=== PATIENT | male | born 1930 | race Caucasian/White ===

== ENCOUNTER 2019-06-08 13:26 | Emergency (ER) | payer OTHER ==
[~2019-06-08] VITALS: Ht 180.3 cm; Wt 81.7 kg
[2019-06-08] MEDS ORDERED: ELIQUIS5 MG PO (13:44)
== END 2019-06-08 15:33 | disposition home or self-care (01) ==
LOC: ED 13:26
DX: R20.2 Paresthesia of skin (principal); Z79.899 Other long term (current) drug therapy
CPT/HCPCS: 70450; 99284-25

== ENCOUNTER 2019-11-16 10:29 | Emergency (ER) | payer OTHER ==
[~2019-11-16] VITALS: Ht 177.8 cm; Wt 79.4 kg
--- OUTSIDE RECORDS SUMMARY | ~2019-11-16 | XMS | Encounter Summary ---
Demographics + + + | Address | [address] | | | [place] [address] | + + + | Home Phone | | + + + | Preferred Language | Unknown | + + + | Marital Status | | + + + | Adventist Affiliation | Unknown | + + + | Race | Unknown | + + + | Ethnic Group | Unknown | + + + Author + + + | Author | [facility] | | | and [place] | + + + | Organization | [facility] | | | and [place] | + + + | Address | Unknown | + + + | Phone | Unavailable | + + + Support + + + + + | Name | Relationship | Address | Phone | + + + + + | Kassie William | ECON | [address] | | | | | [place] | | | | | [address] | | + + + + + Care Team Providers + +------+ + | Care Sisal Operator Name | Role | Phone | + +------+ + | Obie Arreola | PCP | | | MD | | | + +------+ + Reason for Visit + + + | Reason | Comments | + + + | Follow-up | | + + + Follow Up (Routine) + +--------+ + + + + | Status | Reason | Specialty | Diagnoses / | Referred By | Referred To | | | | | Procedures | Contact | Contact | + +--------+ + + + + | Authorized | | Cardiology | Diagnoses | Craigg, | Deborah, | | | | | Chronic | Obie | Sathya | | | | | atrial | Best, | MD Srikanth | | | | | fibrillation | [id number] | [address] | | | | | , | [facility] | [facility] | | | | | unspecified | [place] | [facility] [place] | | | | | ([facility]) | [facility] [place] | [address] Phone: | | | | | Procedures | [id number] | [phone] | | | | | FOLLOW UP | Phone: | Fax: | | | | | | [phone] | [phone] | | | | | | Fax: | | | | | | | [phone] | | + +--------+ + + + + Encounter Details +--------+---------+ + + + | Date | Type | Department | Care Team | Description | +--------+---------+ + + + | 09/27/ | Office | [facility] | Sathya Cabrera | Coronary artery | | 2020 | Visit | CARDIOLOGY [address] | MD Srikanth [address] | disease, angina | | | | [place], | [address] [place] | presence | | | | [place] [address] | [place] [address] | unspecified, | | | | [phone] | [phone] | unspecified vessel | | | | | | or lesion type, | | | | | | unspecified whether | | | | | | curyung or | | | | | | transplanted heart | | | | | | (Primary Dx); | | | | | | Paroxysmal atrial | | | | | | fibrillation (HCC) | +--------+---------+ + + + Social History + +-------+ +--------+ + | Tobacco Use | Types | Packs/Day | Years | Date | | | | | Used | | + +-------+ +--------+ + | Former Smoker | | | | Quit: 04/02/1962 | + +-------+ +--------+ + + +---+---+---+ | Smokeless Tobacco: | | | | | Never Used | | | | + +---+---+---+ + + + + + | Alcohol Use | Drinks/Week | oz/Week | Comments | + + + + + | Yes | 2-5 Cans of beer | 2.0 - 5.0 | rarely | + + + + + + + + | Sex Assigned at | Date Recorded | | | | + + + | Not on file | | + + + documented as of this encounter Last Filed Vital Signs + + + + + | Vital Sign | Reading | Time Taken | Comments | + + + + + | Blood Pressure | 100/70 | 09/28/2019 11:53 AM | | | | | PDT | | + + + + + | Pulse | 58 | 09/28/2019 11:53 AM | | | | | PDT | | + + + + + | Temperature | - | - | | + + + + + | Respiratory Rate | 12 | 09/28/2019 11:53 AM | | | | | PDT | | + + + + + | Oxygen Saturation | - | - | | + + + + + | Inhaled Oxygen | - | - | | | Concentration | | | | + + + + + | Weight | 81.6 kg (180 lb) | 09/28/2019 11:53 AM | | | | | PDT | | + + + + + | Height | 170.2 cm (5' 7") | 09/28/2019 11:53 AM | | | | | PDT | | + + + + + | Body Mass Index | 28.19 | 09/28/2019 11:53 AM | | | | | PDT | | + + + + + documented in this encounter Progress Notes Sathya Cabrera MD - 09/28/2019 11:30 AM PDTFormatting of this note might be differe nt from the original. PATIENT NAME: Jemal Heath : 1930: AGE: 89 y.o. REFERRED BY: Obie Benavidez* PRIMARY CARE: Obie Arreola MD CARDIOLOGY OFFICE VISIT Date of Service: 09/28/19 HISTORY OF PRESENT ILLNESS: Jemal Heath is a 89 y.o. male with a history of CAD, status post PCI of LAD in 2004, PA F, and abnormal ECG. He is being seen today for a follow-up visit. He presents with his wi carina Fernando. Since his last appointment, patient has been relatively active without any chest p ain or exertional symptoms. He has lost another 5 pounds, on top of about 15 pounds he had l ost prior to our last visit, but he states that he has been reducing his food intake signifi cantly and his weight loss is intentional. He denies any bowel symptoms or constitutional c omplaints. It appears that he has been taking Eliquis 2.5 mg BID instead of warfarin or Xar elto, and recently ran out, and is awaiting a new supply. Pertinent historical clinical information: Patient was initially referred for further evaluation given his history of previous cardiov ascular disease as detailed above. Patient is minimally active but denies any chest pains p er se. He has noticed some increased fatigue which he has attributed to advanced age. He d enies orthopnea, PND, or lower activity edema. He has a diagnosis of PAF but no other detai ls are available and he denies any palpitations or lightheadedness. He has been on therapy with warfarin. He has no known history of stroke or TIA. MEDICAL, SURGICAL, AND PERSONAL HISTORY Past Medical History: Diagnosis Date Broken arms CAD (coronary artery disease) Foot fracture, left GERD (gastroesophageal reflux disease) Hyperlipidemia Obesity Paroxysmal atrial fibrillation (HCC) Past Surgical History: Procedure Laterality Date ADENOIDECTOMY APPENDECTOMY 1940 ROTATOR CUFF REPAIR SHOULDER SURGERY TONSILLECTOMY Family History Problem Relation Age of Onset Cancer Mother Heart attack Mother Heart attack Sister Cancer Sister Cancer Sister Family Status Relation Name Status Mother Father Sister Sister Sister (Not Specified) Sister (Not Specified) Social History Socioeconomic History Marital status: Spouse name: Not on file Number of children: Not on file Years of education: Not on file Highest education level: Not on file Tobacco Use Smoking status: Former Smoker Last attempt to quit: 04/02/1962 Years since quittin.5 Smokeless tobacco: Never Used Substance and Sexual Activity Alcohol use: Yes Alcohol/week: 2.0 - 5.0 standard drinks Types: 2 - 5 Cans of beer per week Comment: rarely Drug use: No CURRENT MEDICATIONS Current Outpatient Medications Medication Sig Dispense Refill atorvaSTATin (LIPITOR) 20 mg tablet Take 20 mg by mouth nightly. cholecalciferol (VITAMIN D-3) 5000 units TABS Take 5,000 Units by mouth Daily. Citrulline 200 MG PACK Take 200 mg by mouth Daily. Coenzyme Q10 (COQ-10) 100 MG CAPS Take 1 capsule by mouth Daily. dorzolamide HCl-timolol maleate (COSOPT) 2.23-0.68% ophthalmic solution ketorolac (ACULAR) 0.5% ophthalmic solution L-Arginine 500 MG TABS Take 1 tablet by mouth Daily. Multiple Vitamin TABS Take 1 tablet by mouth Daily. Nutritional Supplements (GRAPESEED EXTRACT) 500-50 MG CAPS Take 1 capsule by mouth Jany y. ofloxacin (OCUFLOX) 0.3% ophthalmic solution prednisoLONE (PRED FORTE) 1% ophthalmic suspension rivaroxaban (XARELTO) 15 mg tablet Take 1 tablet by mouth Daily (with dinner). 90 table t 3 No current facility-administered medications for this visit. ALLERGIES No Known Allergies ROS I have reviewed the Review of Systems form dated today and scanned into the media tab. OBJECTIVE: PHYSICAL EXAM BP 100/70 | Pulse 58 | Resp 12 | Ht 1.702 m (5' 7") | Wt 81.6 kg (180 lb) | BMI 28.19 kg/m Physical Exam Constitutional: He appears well-developed and well-nourished. He does not appear ill. No di stress. Cardiovascular: Regular rhythm, S1 normal, S2 normal, normal heart sounds and intact distal pulses. Bradycardia present. Pulses: Carotid pulses are 2+ on the right side and 2+ on the left side. Radial pulses are 2+ on the right side and 2+ on the left side. Pulmonary/Chest: Effort normal and breath sounds normal. Musculoskeletal: General: No edema. Vitals reviewed. ECG: Reviewed by me today notable for sinus bradycardia, heart rate 58, sinus arrhythmia w ith occasional PVCs, left axis deviation, LBBB. Previous ECG was notable for sinus rhythm, heart rate 59, first-degree AV block, PACs, left axis deviation, LBBB. LAB RESULTS: LIPID Lab Results Component Value Date CHOLHDL 3.3 (A) 05/04/2019 HDLEX 58 05/04/2019 TRIGEX 121 05/04/2019 CHOLEX 189 05/04/2019 CHEMISTRY Lab Results Component Value Date NAEX 143 05/04/2019 KEX 4.4 05/04/2019 CLEX 107 05/04/2019 CO2EX 25 05/04/2019 ASTEX 19 05/04/2019 ALTEX 20 05/04/2019 HEMATOLOGY Lab Results Component Value Date WBCEX 3.9 05/04/2019 HGBEX 12.3 05/04/2019 HCTEX 38.5 05/04/2019 PLTEX 169 05/04/2019 I previously reviewed records from [facility] for hospitalization,including H&P, Discharge Summary and lab reports on November 2004 as well as PCP visit 01/27/17. Cardiac catheterization September 2004 results reviewed by me today notable for total occlusion o f LAD had mid vessel, otherwise minimal CAD, treated with implantation of a single 3.0 16 m m metal stent. Echocardiogram March 2017 interpreted and reviewed by me with the patient today notable for LVEF 59%, grade 1 LV diastolic dysfunction, mild AI, mild left atrial enlargement. Holter monitor March 2017 interpreted and reviewed by me with the patient today notable for underlying sinus rhythm, heart rate 61, very frequent PACs comprising 23% of all beats, occasional PVCs, mild nocturnal bradycardia without any pauses, no symptoms reported. ASSESSMENT: 1. CAD - stable - patient does not exhibit any significant anginal symptoms. There is no indication for further workup for occult CAD/ischemia at this point. Focus will remain on c ontinued medical therapy and risk factor reduction. 2. Paroxysmal atrial fibrillation - this is described in patients medical record although he cannot recall any details. His last Holter monitor revealed frequent isolated ectopy wit hout sustained dysrhythmias or atrial fibrillation. He should continue with anticoagulation therapy. In the past he briefly tried Pradaxa using medication samples but could not affor d it. We had previously prescribed him Xarelto 15 mg daily, but it appears that he is takin g low-dose Eliquis instead. He recently ran out. I am sending him home with a 2-week suppl y and he is to let us know if he needs more. 3. Dyspnea on exertion - stable - this certainly may be attributed to the patient's advanc ed age, however given his abnormal ECG, he underwent an echocardiogram which was unremarkabl e. PLAN: 1. No further cardiovascular diagnostics. 2. Continue current medications for now. Additional Eliquis samples supplied. 3. Maintain active lifestyle. 4. Follow-up visit within 6-12 months. 5. Fall prevention reemphasized. Portions of this report were transcribed using voice recognition software. Every effort wa s made to ensure accuracy; however, inadvertent computerized nanofabrication specialist errors may be pre sent. Electronically signed by: Rick Cabrera MD PhD FACC 09/28/2019 axood, Sathya Duke MD - 09/28/2019 11:30 AM PDT Electronically signed by Sathya Cabrera MD at 4:26 PM PDTdocumented in this encounter Plan of Treatment Not on filedocumented as of this encounter Procedures + +--------+ + + + | Procedure Name | Priori | Date/Time | Associated Diagnosis | Comments | | | ty | | | | + +--------+ + + + | ECG 12 LEAD | Routin | 09/28/2019 | Coronary artery | Results for this | | | e | 11:47 AM | disease, angina | procedure are in the | | | | PDT | presence | results section. | | | | | unspecified, | | | | | | unspecified vessel | | | | | | or lesion type, | | | | | | unspecified whether | | | | | | [place] or | | | | | | transplanted heart | | | | | | Paroxysmal atrial | | | | | | fibrillation (HCC) | | + +--------+ + + + documented in this encounter Results ECG 12 lead (09/28/2019 11:47 AM PDT) + + + + + + | Component | Value | Ref Range | Performed | Pathologist | | | | | At | Signature | + + + + + + | VENTRICULAR | 58 | BPM | [facility] | | | RATE EKG | | | | | + + + + + + | ATRIAL RATE | 58 | BPM | [facility] | | + + + + + + | P-R | 184 | ms | [facility] | | | INTERVAL | | | | | + + + + + + | QRS | 194 | ms | [facility] | | | DURATION | | | | | + + + + + + | Q-T | 498 | ms | [facility] | | | INTERVAL | | | | | + + + + + + | Q-T | 488 | ms | [facility] | | | INTERVAL | | | | | | (CORRECTED) | | | | | + + + + + + | P WAVE AXIS | 52 | degrees | [facility] | | + + + + + + | QRS AXIS | -43 | degrees | [facility] | | + + + + + + | T AXIS | 127 | degrees | [facility] | | + + + + + + | INTERPRETAT | Sinus bradycardia with | | [facility] | | | ION TEXT | sinus arrhythmia with | | | | | | occasional premature | | | | | | ventricular | | | | | | complexesLeft axis | | | | | | deviationLeft bundle | | | | | | branch blockAbnormal | | | | | | ECGWhen compared with | | | | | | ECG of 08-AUG-2018 | | | | | | 09:22,premature | | | | | | ventricular complexes | | | | | | are now presentPR | | | | | | interval has | | | | | | decreasedConfirmed by | | | | | | BRYAN LEON, KARL | | | | | | ([id number]) on 09/29/2019 | | | | | | 8:02:57 AM | | | | + + + + + + + + | Specimen | + + | | + + + + + | Narrative | Performed At | + + + | | | + + + + +---------+ + + | Performing | Address | City/State/Zipcode | Phone Number | | Organization | | | | + +---------+ + + | [facility] | | | | + +---------+ + + documented in this encounter Visit Diagnoses + + | Diagnosis | + + | Coronary artery disease, angina presence unspecified, unspecified vessel or lesion | | type, unspecified whether [place] or transplanted heart - Primary | + + | Paroxysmal atrial fibrillation (HCC) Atrial fibrillation | + + documented in this encounter
--- OUTSIDE RECORDS SUMMARY | ~2019-11-16 | XMS | Encounter Summary ---
Demographics + + + | Address | [address] | | | [place] [address] | + + + | Home Phone | | + + + | Preferred Language | Unknown | + + + | Marital Status | | + + + | Zoroastrian Affiliation | Unknown | + + + | Race | Unknown | + + + | Ethnic Group | Unknown | + + + Author + + + | Author | [facility] | | | and [place] | + + + | Organization | [facility] | | | and [...] [place] | | | | | [address] | | + + + + + Care Team Providers + +------+ + | Care Director Of Revenue Cycle Management Name | Role | Phone | + +------+ + | Obie Arreola | PCP | | | MD | | | + +------+ + Reason for Visit +--------+--------+ + | Reason | Onset | Comments | | | Date | | +--------+--------+ + | LABS | 04/26/ | | | | 2017 | | +--------+--------+ + Encounter Details +--------+ + + + + | Date | Type | Department | Care Team | Description | +--------+ + + + + | 04/26/ | Telephone | [facility] | Sathya Cabrera | [facility] | | 2018 | | [address] | MD Srikanth [address] | | | | | [place], | [address] [place] [address] [place] | | | | | [place] [address] | [place] [address] | | | | | [phone] | [phone] | | | | | | | | +--------+ + + + + Social History + +-------+ [...] + + documented as of this encounter Miscellaneous Notes Telephone Encounter - Monahan, Lexi, Forms Analyst - 04/26/2018 11:03 AM PSTOrders fax ed renda ne Encounter - Annemarie Lowe RN - 04/26/2018 10:08 AM PSTOrder done ................. .........................Annemarie Lowe, RN on 04/26/18 at 10:13 elephone Giovanyt barbara - Lexi Monahan, Forms Analyst - 04/26/2018 10:03 AM PSTPatient scheduled for an pj ointment on 05/18/2017 and is needing a BNP. Please order, thank you. [facility] [place]. Wero engel in this encounter Plan of Treatment + +------+--------+ + + | Name | Type | Priori | Associated Diagnoses | Order Schedule | | | | ty | | | + +------+--------+ + + | B Type Natriuretic | Lab | Routin | Paroxysmal atrial | Expected: | | Peptide | | e | fibrillation (HCC) | 04/26/2018, Expires: | | | | | Coronary artery | 04/26/2019 | | | | | disease, angina | | | | | | presence | | | | | | unspecified, | | | | | | unspecified vessel | | | | | | or lesion type, | | | | | | unspecified whether | | | | | | [place] or | | | | | | transplanted heart | | | | | | Dyspnea on exertion | | + +------+--------+ + + documented as of this encounter Visit Diagnoses + + | Diagnosis | + + | Paroxysmal atrial fibrillation (HCC) - Primary Atrial fibrillation | + + | Coronary artery disease, angina presence unspecified, unspecified vessel or lesion | | type, unspecified whether [place] or transplanted heart | + + | Dyspnea on exertion Other dyspnea and respiratory abnormality | + + documented in this encounter"
--- OUTSIDE RECORDS SUMMARY | ~2019-11-16 | XMS | Encounter Summary ---
Demographics + + + | Address | [address] | | | [place] [address] | + + + | Home Phone | | + + + | Preferred Language | Unknown | + + + | Marital Status | | + + + | Pentecostal Affiliation | Unknown | + + + | Race | Unknown | + + + | Ethnic Group | Unknown | + + + Author + + + | Author | [facility] | | | and [place] | + + + | Organization | [facility] | | | [...] [place] | | | | | [id number] | | + + + + + Care Team Providers + +------+ + | Care Production Supervisor Trainee Name | Role | Phone | + +------+ + | Obie Arreola | PCP | | | MD | | | + +------+ + Reason for Visit + + + | Reason | Comments | + + + | Follow-up | | + + + Encounter Details +--------+---------+ + + + | Date | Type | Department | Care Team | Description | +--------+---------+ + + + | 07/05/ | Office | [facility] | Sathya Cabrera | Coronary artery | | 2018 | Visit | CARDIOLOGY [address] | MD Srikanth [address] | disease, angina | | | | [place], | [address] [place] | presence | | | | [place] [address] | [place] [address] | unspecified, | | | | [phone] | [phone] | unspecified vessel | | | | | | or lesion type, | | | | | | unspecified whether | | | | | | [place] or | | | | | | transplanted heart | | | | | | (Primary Dx); | | | | | | Hyperlipidemia, | | | | | | unspecified | | | | | | hyperlipidemia type; | | | | | | Paroxysmal [...] + + + | Blood Pressure | 158/60 | 07/05/2017 9:58 AM | | | | | PST | | + + + + + | Pulse | 56 | 07/05/2017 9:58 AM | | | | | PST | | + + + + + | Temperature | - | - | | + + + + + | Respiratory Rate | 16 | 07/05/2017 9:58 AM | | | | | PST | | + + + + + | Oxygen Saturation | - | - | | + + + + + | Inhaled Oxygen | - | - | | | Concentration | | | | + + + + + | Weight | 91.2 kg (201 lb 1 | 07/05/2017 9:58 AM | | | | oz) | PST | | + + + + + | Height | 170.2 cm (5' 7") | 07/05/2017 9:58 AM | | | | | PST | | + + + + + | Body Mass Index | 31.49 | 07/05/2017 9:58 AM | | | | | PST | | + + + + + documented in this encounter Progress Notes Sathya Cabrera MD - 07/05/2017 10:00 AM PSTFormatting of this note might be differe nt from the original. PATIENT NAME: Jemal Heath : 1930: AGE: 87 y.o. REFERRED BY: Sathya Cabrera PRIMARY CARE: Obie Arreola MD CARDIOLOGY OFFICE VISIT Date of Service: 07/05/17 HISTORY OF PRESENT ILLNESS: Jemal Heath is a 87 y.o. male with a history of CAD, status post PCI of LAD in 2004, PA F, and abnormal ECG. He is being seen today for a follow-up visit. He presents with his wi fe Kassie. Since his last appointment, patient underwent echocardiography and ambulatory steven toring. He has been feeling great and plans on going on several trips later this year. Pertinent historical clinical information: Patient was initially [...] Cancer Sister Cancer Sister Family Status Relation Status Mother Father Sister Sister Sister Sister Social History Social History Marital status: Spouse name: N/A Number of children: N/A Years of education: N/A Social History Main Topics Smoking status: Former Smoker Quit date: 04/02/1962 Smokeless tobacco: Never Used Alcohol use 1.2 - 3.0 oz/week 2 - 5 Cans of beer per week Comment: rarely Drug use: No Sexual activity: Not Asked Other Topics Concern None Social History Narrative None CURRENT MEDICATIONS Current Outpatient Prescriptions Medication Sig Dispense Refill atorvaSTATin (LIPITOR) 20 mg tablet Take 20 mg by mouth nightly. cholecalciferol (VITAMIN D-3) 5000 units TABS Take 5,000 Units by mouth Daily. Citrulline 200 MG PACK Take 200 mg by mouth Daily. Coenzyme Q10 (COQ-10) 100 MG CAPS Take 1 capsule by mouth Daily. L-Arginine 500 MG TABS Take 1 tablet by mouth Daily. Multiple Vitamin TABS Take 1 tablet by mouth Daily. Nutritional Supplements (GRAPESEED EXTRACT) 500-50 MG CAPS Take 1 capsule by mouth Jany y. warfarin (COUMADIN) 5 mg tablet Take 5 mg by mouth Daily. No current facility-administered medications for this visit. ALLERGIES No Known Allergies ROS I have reviewed the Review of Systems form dated today and scanned into the media tab. OBJECTIVE: PHYSICAL EXAM BP 158/60 | Pulse 56 | Resp 16 | Ht 1.702 m (5' 7") | Wt 91.2 kg (201 lb 1 oz) | BMI 3 1.49 kg/m Physical Exam Constitutional: He appears well-developed and well-nourished. No distress. Cardiovascular: Normal rate, regular rhythm, S1 normal, S2 normal, normal heart sounds, int act distal pulses and normal pulses. Pulses: Carotid pulses are 2+ on the right side, and 2+ on the left side. Radial pulses are 2+ on the right side, and 2+ on the left side. Pulmonary/Chest: Effort normal and breath sounds normal. Musculoskeletal: He exhibits no edema. Skin: No cyanosis. Nails show no clubbing. Vitals reviewed. ECG: Reviewed by me today notable for sinus rhythm, heart rate 59, first-degree AV block, PACs, left axis deviation, LBBB. LAB RESULTS: LIPID No results found for: CHOL, TRIG, HDL, LDL, CHOLHDL, LDLEX, HDLEX, TRIGEX, CHOLEX CHEMISTRY No results found for: GLU, GLUEX, NA, NAEX, K, KEX, CL, CLEX, CO2, CO2EX, CALCIUM, ALKPHOS, AST, ASTEX, ALT, ALTEX, BILITOT, CREA, BUN, EGFR, EGFREX, CREEX HEMATOLOGY No results found for: WBC, WBCEX, HGB, HGBEX, HCT, HCTEX, PLT, PLTEX I reviewed records from [facility] for hospitalization,including H&P, Discharge Summary and lab [...] no symptoms reported. ASSESSMENT: 1. CAD - patient does not exhibit any significant anginal symptoms. There is no indicatio n for further workup for occult CAD/ischemia at this point. Focus will remain on continued medical therapy and risk factor reduction. 2. Paroxysmal atrial fibrillation - this is described in patients medical record although he cannot recall any details. For now we will continue with warfarin therapy. His recent H olter monitor revealed frequent isolated ectopy without sustained dysrhythmias or atrial fib rillation. 3. Dyspnea on exertion - this certainly may be attributed to the patient's advanced age, h owever given his abnormal ECG, he underwent an echocardiogram which was unremarkable. PLAN: 1. No further cardiovascular diagnostics. 2. Continue current medications for now. 3. Check BNP. 4. Follow-up visit within 6 months. Portions of this report were transcribed using voice recognition software. Every effort wa s made to ensure accuracy; however, inadvertent computerized medical records clerk errors may be pre sent. Electronically signed by: Rick Cabrera MD PhD [facility] 07/05/2017 documented in t his encounter Plan of Treatment Not on filedocumented as of this encounter Visit Diagnoses + + | Diagnosis | + + | Coronary artery disease, angina presence unspecified, unspecified vessel or lesion | | type, unspecified whether [place] or transplanted heart - Primary | + + | Hyperlipidemia, unspecified hyperlipidemia type | + + | Paroxysmal atrial fibrillation (HCC) Atrial fibrillation | + + documented in this encounter
--- OUTSIDE RECORDS SUMMARY | ~2019-11-16 | XMS | Encounter Summary ---
Demographics + + + | Address | [address] | | | [place] [address] | + + + | Home Phone | | + + + | Preferred Language | Unknown | + + + | Marital Status | | + + + | Islam Affiliation | Unknown | + + + | Race | Unknown | + + + | Ethnic Group | Unknown | + + + Author + + + | Author | [facility] | | | and [place] | + + + | Organization | [facility] | | | and [place] | + + + | Address | Unknown | + + + | Phone | Unavailable | + + + Support + + + + + | Name | Relationship | Address | Phone | + + + + + | Kassie William | E[address] | [address] | | | | | [place] | | | | | [phone] | | + + + + + Care Team Providers + +------+ + | Care Lens Coater Name | Role | Phone | + +------+ + | Obie Arreola | PCP | | | MD | | | + +------+ + Reason for Referral Diagnostic/Screening (Routine) +--------+--------+ + + + + | Status | Reason | Specialty | Diagnoses / | Referred By | Referred To | | | | | Procedures | Contact | Contact | +--------+--------+ + + + + | Closed | | Radiology | Diagnoses | Maxood, | [facility] | | | | | Heart | Sathya | [address] | | | | | failure, | MD Srikanth | [place], | | | | | unspecified | [address] | [place] | | | | | heart | [place] | [address] | | | | | failure | [place], [place] | Phone: | | | | | chronicity, | [id number] | [phone] | | | | | unspecified | Phone: | Fax: | | | | | heart | [phone] | [phone] | | | | | failure type | Fax: | | | | | | [place] | [phone] | | | | | | (myocardial | | | | | | | infarction) | | | | | | | Procedures | | | | | | | ECHO | | | | | | | Complete [place] | | | | | | | ECHO HEART | | | | | | | XTHORACIC,CO | | | | | | | MPLETE W | | | | | | | DOPPLER [place] | | | | | | | ECHO HEART | | | | | | | XTHORACIC,CO | | | | | | | MPLETE, W/O | | | | | | | DOPPLER | | | +--------+--------+ + + + + Reason for Visit + + + | Reason | Comments | + + + | Follow-up | | + + + Evaluate & Treat (Routine) +--------+--------+ + + + + | Status | Reason | Specialty | Diagnoses / | Referred By | Referred To | | | | | Procedures | Contact | Contact | +--------+--------+ + + + + | Closed | | Cardiology | Diagnoses | Maxwell, | Deborah, | | | | | A-onur ([facility]) | Obie | Sathya | | | | | | Best, | MD Srikanth | | | | | | [id number] | [address] | | | | | | [address] | [address] [place] | | | | | | [place] | [place] | | | | | | [place] | [id number] Phone: | | | | | | [phone] | [phone] | | | | | | Phone: | Fax: | | | | | | [phone] | [phone] | | | | | | Fax: | | | | | | | [phone] | | +--------+--------+ + + + + Encounter Details +--------+---------+ + + + | Date | Type | Department | Care Team | Description | +--------+---------+ + + + | 04/02/ | Office | [facility] | Sathya Hansen | Coronary artery | | 2017 | Visit | CARDIOLOGY [address] | MD Srikanth [address] | disease, angina | | | | [address] [place], | [address] [place] | presence | | | | [place] [address] | [place] [address] | unspecified, | | | | [phone] | [phone] | unspecified vessel | | | | | | or lesion type, | | | | | | unspecified whether | | | | | | [place] or | | | | | | transplanted heart | | | | | | (Primary Dx); | | | | | | Hyperlipidemia, | | | | | | unspecified | | | | | | hyperlipidemia type; | | | | | | Paroxysmal atrial | | | | | | fibrillation (HCC); | | | | | | Heart failure, | | | | | | unspecified heart | | | | | | failure chronicity, | | | | | | unspecified heart | | | | | | failure type (HCC); | | | | | | Old [place] (myocardial | | | | | | infarction); PVC | | | | | | (premature | | | | | | ventricular | | | | | | contraction) | +--------+---------+ + + + Social History [...] + + + | Blood Pressure | 108/56 | 04/02/2017 9:44 AM | | | | | PST | | + + + + + | Pulse | 60 | 04/02/2017 9:44 AM | | | | | PST | | + + + + + | Temperature | - | - | | + + + + + | Respiratory Rate | 14 | 04/02/2017 9:44 AM | | | | | PST | | + + + + + | Oxygen Saturation | - | - | | + + + + + | Inhaled Oxygen | - | - | | | Concentration | | | | + + + + + | Weight | 88.4 kg (194 lb 14.2 | 04/02/2017 9:44 AM | | | | oz) | PST | | + + + + + | Height | 170.2 cm (5' 7") | 04/02/2017 9:44 AM | | | | | PST | | + + + + + | Body Mass Index | 30.52 | 04/02/2017 9:44 AM | | | | | PST | | + + + + + documented in this encounter Patient Instructions Patient Instructions Annemarie Lowe RN - 04/02/2017 10:30 AM PST Blood test: Non-fasting Date Due: now Where to go for labs: [facility]- [address] [facility] Echo: Date: Check-In Time: Where to Check In: Holter Monitor : 24 hour Date: Check-In Time: Where to Check in: Follow up appointment: 3 months Provider: Rama Hansen MD Date: Check-In Time: documented in this encounter Progress Notes Sathya Hansen MD - 04/02/2017 10:30 AM PSTFormatting of this note might be differe nt from the original. PATIENT NAME: Jemal Heath : 1930: AGE: 86 y.o. REFERRED BY: Obie Tang PRIMARY CARE: Obie Arreola MD CARDIOLOGY OFFICE VISIT Date of Service: 04/02/17 HISTORY OF PRESENT ILLNESS: Jemal Heath is a 86 y.o. male with a history of CAD, status post PCI of LAD in 2004, PA F, and abnormal ECG. He is being seen today for further consultation. He presents with his Kassie. He is referred by Obie Tang for further evaluation given his history of prev ious cardiovascular disease as detailed above. Patient is minimally active but denies any c hest pains per se. He has noticed some increased fatigue which he has attributed to advance d age. He denies orthopnea, PND, or lower activity edema. He has a diagnosis of PAF but no other details are available and he denies any palpitations [...] capsule by mouth Jany y. warfarin (COUMADIN) 1 mg tablet Take 0.5 mg by mouth Daily. warfarin (COUMADIN) 5 mg tablet Take 5 mg by mouth Daily. No current facility-administered medications for this visit. ALLERGIES No Known Allergies ROS I have reviewed the Review of Systems form dated today and scanned into the media tab. OBJECTIVE: PHYSICAL EXAM BP 108/56 | Pulse 60 | Resp 14 | Ht 1.702 m (5' 7") | Wt 88.4 kg (194 lb 14.2 oz) | BM I 30.52 kg/m Physical Exam Constitutional: He is oriented to person, place, and time. He appears well-developed and we ll-nourished. HENT: Head: Normocephalic. Eyes: No scleral icterus. Neck: Normal carotid pulses and no JVD present. Carotid bruit is not present. Cardiovascular: Normal rate, regular rhythm, S1 normal, S2 normal, normal heart sounds, int act distal pulses and normal pulses. PMI is not displaced. Exam reveals no gallop and no m idsystolic click. No murmur heard. Pulses: Carotid pulses are 2+ on the right side, and 2+ on the left side. Radial pulses are 2+ on the right side, and 2+ on the left side. Dorsalis pedis pulses are 2+ on the right side, and 2+ on the left side. Pulmonary/Chest: Effort normal and breath sounds normal. No accessory muscle usage. No resp iratory distress. He has no wheezes. He has no rhonchi. He has no rales. Abdominal: Soft. Normal aorta and bowel sounds are normal. He exhibits no abdominal bruit. There is no hepatosplenomegaly. There is no tenderness. Musculoskeletal: He exhibits no edema. Neurological: He is alert and oriented to person, place, and time. Gait normal. Skin: Skin is warm and dry. No cyanosis. Nails show no clubbing. Psychiatric: He has a normal mood and affect. His mood appears not anxious. He does not exh ibit a depressed mood. Vitals reviewed. ECG: Reviewed by me today [...] HCTEX, PLT, PLTEX I reviewed records from [facility] for hospitalization,including H&P, Discharge Summary and lab reports on November 2004 as well as PCP visit 01/27/17. Cardiac catheterization September 2004 results reviewed by me today notable for total occlusion o f LAD had mid vessel, otherwise minimal CAD, treated with implantation of a single 3.0 16 m m metal stent. ASSESSMENT: 1. CAD - patient does not exhibit any significant anginal symptoms. There is no indicatio n for further workup for occult CAD/ischemia at this point. Focus will remain on continued medical therapy and risk factor reduction. 2. Paroxysmal atrial fibrillation - this is described in patients medical record although he cannot recall any details. For now we will continue with warfarin therapy. I will have him undergo a 24-hour Holter monitor. 3. Dyspnea on exertion - this certainly may be attributed to the patient's advanced age, h owever given his abnormal ECG, he may benefit from an echocardiogram to reassess his LV syst olic function given his history of CAD, to rule out significant, occult cardiomyopathy. We will also check a BNP. For now we will continue his current medical regimen. PLAN: 1. Echocardiogram. 2. Holter monitor. 3. Check BNP. 4. Continue current medications for now. 5. Follow-up visit within 3 months. Portions of this report were transcribed using voice recognition software. Every effort wa s made to ensure accuracy; however, inadvertent computerized access liaison errors may be pre sent. Electronically signed by: Rick Hansen MD PhD [facility] 04/02/2017 documented in t his encounter Plan of Treatment + +------+--------+ + + | Name | Type | Priori | Associated Diagnoses | Order Schedule | | | | ty | | | + +------+--------+ + + | B Type Natriuretic | Lab | Routin | Coronary artery | Expected: | | Peptide | | e | disease, angina | 04/02/2017, Expires: | | | | | presence | 04/02/2018 | | | | | unspecified, | | | | | | unspecified vessel | | | | | | or lesion type, | | | | | | unspecified whether | | | | | | [place] or | | | | | | transplanted heart | | | | | | Heart failure (HCC) | | + +------+--------+ + + documented as of this encounter Procedures + +--------+ + + + | Procedure Name | Priori | Date/Time | Associated Diagnosis | Comments | | | ty | | | | + +--------+ + + + | ECG 12 LEAD | Routin | 04/02/2017 | Coronary artery | Results for this | | | e | 10:31 AM | disease, angina | procedure are in the | | | | PST | presence | results section. | | | | | unspecified, | | | | | | unspecified vessel | | | | | | or lesion type, | | | | | | unspecified whether | | | | | | [place] or | | | | | | transplanted heart | | | | | | Hyperlipidemia, | | | | | | unspecified | | | | | | hyperlipidemia type | | | | | | Paroxysmal atrial | | | | | | fibrillation (HCC) | | + +--------+ + + + documented in this encounter Results Holter monitor - 24 hour (04/22/2017 4:16 PM PST) + + + | Narrative | Performed At | + + + | Sathya Hansen MD 04/22/2017 16:17 PATIENT | [facility] | | NAME: Jemal Heath : 1930: AGE: 86 y.o. | | | PRIMARY CARE: Obie Do | | | MD Maxwell READING RETREAD SUPERVISOR: Rick Hansen MD, PhD, [facility] | | | 24-HOUR HOLTER MONITOR REPORT DATE: 04/13/2017 | | | FINDINGS: 1. The predominant rhythm is normal sinus with the | | | heart rate ranging between 46 and 85 beats per minute. The average | | | heart rate was 61 beats per minute during the 24:23 hour recording. | | | 2. 803 ventricular beats including one four beat ventricular run | | | at a rate of 90 BPM, and 2 couplets. 3. 20,726 supraventricular | | | beats including 23 couplets and four SVE runs. The longest run was | | | 6 beats at a maximum rate of 104 bpm (19:21-1). 4. 129 runs of | | | bradycardia with the longest run 18 beats (11:22-1) and a minimum | | | rate of 39 beats per minute (09:38-2). 5. No tachycardia or | | | pauses. 6. Patient did not report any symptoms. | | | IMPRESSION: 1. 24-hour Holter monitor notable for underlying | | | sinus rhythm with mean heart rate 61. 2. Occasional isolated PVCs | | | without significant sustained runs. 3. Very frequent PACs without | | | significant sustained runs, comprising 23% of all beats. 4. Mild | | | predominantly nocturnal bradycardia without pauses. 5. The symptoms | | | reported. Signed by: Rick Hansen MD PhD [facility] | | | 04/22/2017, 16:16 | | + + + + +---------+ + + | Performing | Address | City/State/Zipcode | Phone Number | | Organization | | | | + +---------+ + + | [facility] | | | | + +---------+ + + ECHO Complete (04/13/2017 10:51 AM PST) + +-------+ + + + | Component | Value | Ref Range | Performed | Pathologist | | | | | At | Signature | + +-------+ + + + | LVEF-TTE | 59 | | [facility] | | | TRANSTHORAC | | | | | | IC ECHO | | | | | + +-------+ + + + + + | Specimen | + + | | + + + +-- + | Narrative | P erformed At | + +-- + | Transthoracic | [facility] | | Echocardiography Report (TTE) Demographics Patient Name FAITH | | | Room Number JEMAL Patient Number | | | [id number] Date of Study 04/13/2017 Visit Number | | | [id number] Referring Physician | | | DEBORAH FINE SRIKANTH Number Date of 1930 | | | [employer] [employer] JAMES PASCUAL, CHITRA Age 86 | | | year(s) Interpreting DEBORAH GUO | | | Forest Management Professor | | | SRIKANTH HANSEN MD Gender Male Nurse | | | Stress Resident Program Specialist Procedure | | | Type of Study TTE procedure: ECHO Complete. Procedure dateDate: | | | 04/13/2017Start: 10:09 AM Technical Quality: Adequate | | | visualizationStudy Location: Echo LabIndications: CONGESTIVE HEART | | | FAILURE UNSPECIFIED 428.0/ I50.9.Patient Status: RoutineHeight: 67 | | | inchesWeight: 194 poundsBSA: 2 m^2BMI: 30.38 kg/m^2Rhythm: Normal | | | Sinus Rhythm w/PAC'sHR: 62 bpm ConclusionsSummaryLeft ventricle is | | | normal in size and function. Ejection fraction isestimated at | | | 59%.There is grade 1 LV diastolic dysfunction.Aortic valve is a mildly | | | sclerotic trileaflet with good systolic excursion.There is mild | | | insufficiency noted.Left Atrium is mildly enlarged. | | | Signature | | | | | | PM | | | -------- FindingsMitral ValveStructurally normal mitral valve without | | | significant stenosis orregurgitation.Aortic ValveAortic valve is a | | | mildly sclerotic trileaflet with good systolic excursion.There is mild | | | insufficiency noted.Tricuspid ValveStructurally normal tricuspid | | | valve without significant stenosis orregurgitation.Pulmonic | | | ValveStructurally normal pulmonic valve without significant stenosis | | | orregurgitation.Left AtriumLeft Atrium is mildly enlarged.Left | | | VentricleLeft ventricle is normal in size and function. Ejection | | | fraction isestimated at 59%.There is grade 1 LV diastolic | | | dysfunction.Right AtriumNormal right atrial size.Right VentricleNormal | | | right ventricular size.Right ventricle global systolic function is | | | normal.TAPSE = 2.2 cm.Pericardial EffusionNo evidence of pericardial | | | effusion.Pleural EffusionNo evidence of pleural | | | effusion.MiscellaneousNormal aortic root.The IVC appears normal.IVC | | | respiratory change in dimension > 50%. Valves Mitral Valve Peak | | | E-Wave: 0.49 m/s Peak A-Wave: 0.95 m/s Tissue Doppler Septal e' | | | Velocity: 0.04 m/s Aortic Valve Area (continuity): 2.6 cm^2 | | | Mean Gradient: 4.73 mmHg LVOT Peak Velocity: 0.9 m/s LVOT | | | Diameter: 2.28 cm Structures Left Atrium LA A/P Dimension: 4.77 cm | | | LA Area: 17.97 cm^2 LA Vol/BSA Index: | | | 28 mL/m^2 LA Volume: 55.6 ml | | | EF | | | Poyolwcsp09% Left Ventricle Diastolic Dimension: 4.88 cm | | | Systolic Dimension: 3.9 cm Septum Diastolic: 0.94 cm PW Diastolic: | | | 1.2 cm EF Calculated: 52.61% Miscellaneous Aorta Aortic Root: 3.17 | | | cm | | | | | | | | |Findings | | |Mitral Valve | | |Structurally normal mitral valve without significant stenosis or | | |regurgitation. | | |Aortic Valve | | |Aortic valve is a mildly sclerotic trileaflet with good systolic excursion. | | |There is mild insufficiency noted. | | |Tricuspid Valve | | |Structurally normal tricuspid valve without significant stenosis or | | |regurgitation. | | |Pulmonic Valve | | |Structurally normal pulmonic valve without significant stenosis or | | |regurgitation. | | |Left Atrium | | |Left Atrium is mildly enlarged. | | |Left Ventricle | | |Left ventricle is normal in size and function. Ejection fraction is | | |estimated at 59%. | | |There is grade 1 LV diastolic dysfunction. | | |Right Atrium | | |Normal right atrial size. | | |Right Ventricle | | |Normal right ventricular size. | | |Right ventricle global systolic function is normal. | | |TAPSE = 2.2 cm. | | |Pericardial Effusion | | |No evidence of pericardial effusion. | | |Pleural Effusion | | |No evidence of pleural effusion. | | |Miscellaneous | | |Normal aortic root. | | |The IVC appears normal. | | |IVC respiratory change in dimension > 50%. | | | | | |Valves | | | | | | Mitral Valve | | | | | | Peak E-Wave: 0.49 m/s | | | Peak A-Wave: 0.95 m/s | | | | | | Tissue Doppler | | | | | | Septal e' Velocity: 0.04 m/s | | | | | | Aortic Valve | | | | | | Area (continuity): 2.6 cm^2 | | | Mean Gradient: 4.73 mmHg | | | | | | LVOT | | | | | | Peak Velocity: 0.9 m/s | | | LVOT Diameter: 2.28 cm | | | | | |Structures | | | | | | Left Atrium | | | | | | LA A/P Dimension: 4.77 cm LA Area: 17.97 cm^2 | | | LA Vol/BSA Index: 28 mL/m^2 LA Volume: 55.6 ml | | | EF Ximxpylqk15% | | | | | | Left Ventricle | | | | | | Diastolic Dimension: 4.88 cm Systolic Dimension: 3.9 cm | | | Septum Diastolic: 0.94 cm | | | PW Diastolic: 1.2 cm | | | EF Calculated: 52.61% | | | | | | Miscellaneous | | | | | | Aorta | | | | | | Aortic Root: 3.17 cm | | | | | + +-- + + + | Procedure Note | + + | Trevon, Rad Results In - 04/15/2017 8:12 PM [facility] Transthoracic Echocardiography Report | | (TTE) Demographics Patient Name FAITH Room Number JEAML | | Patient Number [id number] Date of Study 04/13/2017 Visit Number | | [id number] Referring Physician DEBORAH GUO | | Number Date of 1930 [address] JAMES PASCUAL RDCS Age | | 86 year(s) Interpreting DEBORAH GUO | | Forest Management Professor SRIKANTH HANSEN MD Gender Male Nurse | | Stress TechnicianProcedureType of Study TTE procedure: ECHO | | Complete.Procedure dateDate: 04/13/2017Start: 10:09 AMTechnical Quality: Adequate | | visualizationStudy Location: Echo LabIndications: CONGESTIVE HEART FAILURE UNSPECIFIED | | 428.0/ I50.9.Patient Status: RoutineHeight: 67 inchesWeight: 194 poundsBSA: 2 m^2BMI: | | 30.38 kg/m^2Rhythm: Normal Sinus Rhythm w/PAC'sHR: 62 bpmConclusionsSummaryLeft | | ventricle is normal in size and function. Ejection fraction isestimated at 59%.There is | | grade 1 LV diastolic dysfunction.Aortic valve is a mildly sclerotic trileaflet with good | | systolic excursion.There is mild insufficiency noted.Left Atrium is mildly | | enlarged.Signature | | ------ | | 08:12 | | PM FindingsMi | | tral ValveStructurally normal mitral valve without significant stenosis | | orregurgitation.Aortic ValveAortic valve is a mildly sclerotic trileaflet with good | | systolic excursion.There is mild insufficiency noted.Tricuspid ValveStructurally normal | | tricuspid valve without significant stenosis orregurgitation.Pulmonic ValveStructurally | | normal pulmonic valve without significant stenosis orregurgitation.Left AtriumLeft | | Atrium is mildly enlarged.Left VentricleLeft ventricle is normal in size and function. | | Ejection fraction isestimated at 59%.There is grade 1 LV diastolic dysfunction.Right | | AtriumNormal right atrial size.Right VentricleNormal right ventricular size.Right | | ventricle global systolic function is normal.TAPSE = 2.2 cm.Pericardial EffusionNo | | evidence of pericardial effusion.Pleural EffusionNo evidence of pleural | | effusion.MiscellaneousNormal aortic root.The IVC appears normal.IVC respiratory change | | in dimension > 50%.Valves Mitral Valve Peak E-Wave: 0.49 m/s Peak A-Wave: 0.95 m/s | | Tissue Doppler Septal e' Velocity: 0.04 m/s Aortic Valve Area (continuity): 2.6 cm^2 | | Mean Gradient: 4.73 mmHg LVOT Peak Velocity: 0.9 m/s LVOT Diameter: 2.28 | | cmStructures Left Atrium LA A/P Dimension: 4.77 cm LA Area: 17.97 | | cm^2 LA Vol/BSA Index: 28 mL/m^2 LA Volume: 55.6 ml | | EF Nuoxcfgml69% Left Ventricle Diastolic Dimension: 4.88 | | cm Systolic Dimension: 3.9 cm Septum Diastolic: 0.94 cm PW Diastolic: 1.2 cm EF | | Calculated: 52.61% Miscellaneous Aorta Aortic Root: 3.17 cm | |Conclusions | |Summary | |Left ventricle is normal in size and function. Ejection fraction is | |estimated at 59%. | |There is grade 1 LV diastolic dysfunction. | |Aortic valve is a mildly sclerotic trileaflet with good systolic excursion. | |There is mild insufficiency noted. | |Left Atrium is mildly enlarged. | | | |Signature | | | | Electronically signed by SRIKANTH HANSEN MD(Interpreting physician) on | | 04/15/2017 08:12 PM | | | | | |Findings | |Mitral Valve | |Structurally normal mitral valve without significant stenosis or | |regurgitation. | |Aortic Valve | |Aortic valve is a mildly sclerotic trileaflet with good systolic excursion. | |There is mild insufficiency noted. | |Tricuspid Valve | |Structurally normal tricuspid valve without significant stenosis or | |regurgitation. | |Pulmonic Valve | |Structurally normal pulmonic valve without significant stenosis or | |regurgitation. | |Left Atrium | |Left Atrium is mildly enlarged. | |Left Ventricle | |Left ventricle is normal in size and function. Ejection fraction is | |estimated at 59%. | |There is grade 1 LV diastolic dysfunction. | |Right Atrium | |Normal right atrial size. | |Right Ventricle | |Normal right ventricular size. | |Right ventricle global systolic function is normal. | |TAPSE = 2.2 cm. | |Pericardial Effusion | |No evidence of pericardial effusion. | |Pleural Effusion | |No evidence of pleural effusion. | |Miscellaneous | |Normal aortic root. | |The IVC appears normal. | |IVC respiratory change in dimension > 50%. | | | |Valves | | | | Mitral Valve | | | | Peak E-Wave: 0.49 m/s | | Peak A-Wave: 0.95 m/s | | | | Tissue Doppler | | | | Septal e' Velocity: 0.04 m/s | | | | Aortic Valve | | | | Area (continuity): 2.6 cm^2 | | Mean Gradient: 4.73 mmHg | | | | LVOT | | | | Peak Velocity: 0.9 m/s | | LVOT Diameter: 2.28 cm | | | |Structures | | | | Left Atrium | | | | LA A/P Dimension: 4.77 cm LA Area: 17.97 cm^2 | | LA Vol/BSA Index: 28 mL/m^2 LA Volume: 55.6 ml | | EF Qlxizzbzy60% | | | | Left Ventricle | | | | Diastolic Dimension: 4.88 cm Systolic Dimension: 3.9 cm | | Septum Diastolic: 0.94 cm | | PW Diastolic: 1.2 cm | | EF Calculated: 52.61% | | | | Miscellaneous | | | | Aorta | | | | Aortic Root: 3.17 cm | + + + +---------+ + + | Performing | Address | City/State/Zipcode | Phone Number | | Organization | | | | + +---------+ + + | [facility] | | | | + +---------+ + + ECG 12 lead (04/02/2017 10:31 AM PST) + + + + + + | Component | Value | Ref Range | Performed | Pathologist | | | | | At | Signature | + + + + + + | VENTRICULAR | 59 | BPM | [facility] | | | RATE EKG | | | | | + + + + + + | ATRIAL RATE | 59 | BPM | [facility] | | + + + + + + | P-R | 212 | ms | [facility] | | | INTERVAL | | | | | + + + + + + | QRS | 164 | ms | [facility] | | | DURATION | | | | | + + + + + + | Q-T | 486 | ms | [facility] | | | INTERVAL | | | | | + + + + + + | Q-T | 481 | ms | [facility] | | | INTERVAL | | | | | | (CORRECTED) | | | | | + + + + + + | P WAVE AXIS | 44 | degrees | [facility] | | + + + + + + | QRS AXIS | -35 | degrees | [facility] | | + + + + + + | T AXIS | 115 | degrees | [facility] | | + + + + + + | INTERPRETAT | Sinus bradycardia with | | [facility] | | | ION TEXT | 1st degree AV block with | | | | | | premature atrial | | | | | | complexesLeft axis | | | | | | deviationLeft bundle | | | | | | branch blockAbnormal | | | | | | ECGNo previous ECGs | | | | | | availableConfirmed by | | | | | | SRIKANTH HANSEN MD | | | | | | ([id number]) on 04/13/2017 | | | | | | 6:39:23 PM | | | | + + + [...] or lesion | | type, unspecified whether [place] or transplanted heart - Primary | + + | Hyperlipidemia, unspecified hyperlipidemia type | + + | Paroxysmal atrial fibrillation (HCC) Atrial fibrillation | + + | Heart failure, unspecified heart failure chronicity, unspecified heart failure type | + + | Old [place] (myocardial infarction) Old myocardial infarction | + + | PVC (premature ventricular contraction) Other premature beats | + + documented in this encounter
--- OUTSIDE RECORDS SUMMARY | ~2019-11-16 | XMS | Encounter Summary ---
Demographics + + + | Address | [address] | | | [place] [address] | + + + | Home Phone | | + + + | Preferred Language | Unknown | + + + | Marital Status | | + + + | Jehovah'S Witness Affiliation | Unknown | + + + | Race | Unknown | + + + | Ethnic Group | Unknown | + + + Author + + + | Author | [facility] | | | and [place] | + + + | Organization | [facility] | | [...] [place] | | | | | [address] | | + + + + + Care Team Providers + +------+ + | Care Tradeshow Worker Name | Role | Phone | + +------+ + | Obie Arreola | PCP | | | MD | | | + +------+ + Reason for Visit +--------+--------+ + | Reason | Onset | Comments | | | Date | | +--------+--------+ + | LABS | 03/30/ | | | | 2016 | | +--------+--------+ + Encounter Details +--------+ + + + + | Date | Type | Department | Care Team | Description | +--------+ + + + + | 03/30/ | Telephone | [facility] | Sathya Cabrera | [place] | | 2017 | | [address] | MD Srik[address] | | | | | [place], | [address] [place] | | | | | [place] [address] | [place] [address] | | | | | [phone] | | | | | | | | +--------+ + + + + Social History + +-------+ +--------+------+ | Tobacco Use | Types | Packs/Day | Years | Date | | | | | Used | | + +-------+ +--------+------+ | Never Assessed | | | | | + +-------+ +--------+------+ + + + + + | Alcohol Use | Drinks/Week | oz/Week | Comments | + + + + + | Yes | 2-5 Cans of beer | 2.0 - 5.0 | | + + + + + + + + | Sex Assigned at | Date Recorded | | | | + + + | Not on file | | + + + documented as of this encounter Miscellaneous Notes Telephone Encounter - Suzie Champagne RN - 03/30/2017 9:27 AM PSTLab orders placed.Electr onically signed by Suzie Champagne RN at 03/30/2017 9:29 AM PSTTelephone Encounter - eLxi Monahan Booth Operator - 03/30/2017 9:06 AM PSTPatient scheduled for an appointment on 04/02/2017 and is needing a fasting Lipid panel, CBC and CMP. Please order, thank you. I wi ll fax the order to Dr. Orellana documen toro in this encounter Plan of Treatment + +------+--------+ + + | Name | Type | Priori | Associated Diagnoses | Order Schedule | | | | ty | | | + +------+--------+ + + | Lipid Panel | Lab | Routin | Hyperlipidemia, | 1 Occurrences | | | | e | unspecified | starting 03/30/2017 | | | | | hyperlipidemia type | until 03/31/2018 | | | | | Coronary artery | | | | | | disease, angina | | | | | | presence | | | | | | unspecified, | | | | | | unspecified vessel | | | | | | or lesion type, | | | | | | unspecified whether | | | | | | [place] or | | | | | | transplanted heart | | + +------+--------+ + + | CBC with | Lab | Routin | Hyperlipidemia, | 1 Occurrences | | Differential | | e | unspecified | starting 03/30/2017 | | | | | hyperlipidemia type | until 03/30/2018 | | | | | Coronary artery | | | | | | disease, angina | | | | | | presence | | | | | | unspecified, | | | | | | unspecified vessel | | | | | | or lesion type, | | | | | | unspecified whether | | | | | | [place] or | | | | | | transplanted heart | | + +------+--------+ + + | Comprehensive | Lab | Routin | Hyperlipidemia, | 1 Occurrences | | Metabolic Panel | | e | unspecified | starting 03/30/2017 | | | | | hyperlipidemia type | until 03/30/2018 | | | | | Coronary artery | | | | | | disease, angina | | | | | | presence | | | | | | unspecified, | | | | | | unspecified vessel | | | | | | or lesion type, | | | | | | unspecified whether | | | | | | [place] or | | | | | | transplanted heart | | + +------+--------+ + + documented as of this encounter Visit Diagnoses + + | Diagnosis | + + | Hyperlipidemia, unspecified hyperlipidemia type - Primary | + + | Coronary artery disease, angina presence unspecified, unspecified vessel or lesion | | type, unspecified whether [place] or transplanted heart | + + documented in this encounter"
--- OUTSIDE RECORDS SUMMARY | ~2019-11-16 | XMS | Encounter Summary ---
Demographics + + + | Address | [address] | | | [place] [address] | + + + | Home Phone | | + + + | Preferred Language | Unknown | + + + | Marital Status | | + + + | Yarsanism Affiliation | Unknown | + + + | Race | Unknown | + + + | Ethnic Group | Unknown | + + + Author + + + | Author | [facility] | | | and [place] | + + + | Organization | [facility] | | | and [...] [place] | | | | | [address] | | + + + + + Care Team Providers + +------+ + | Care Plasterer Tender Name | Role | Phone | + +------+ + | Obie Arreola | PCP | | | MD | | | + +------+ + Reason for Visit +--------+--------+ + | Reason | Onset | Comments | | | Date | | +--------+--------+ + | LABS | 06/24/ | | | | 2017 | | +--------+--------+ + Encounter Details +--------+ + + + + | Date | Type | Department | Care Team | Description | +--------+ + + + + | 06/24/ | Telephone | [facility] | Sathya Cabrera | [place] | | 2018 | | [address] | MD Sir[address] | | | | | [place], | [address] [place] | | | | | [place] [address] | [place] [address] | | | | | [phone] | | | | | | | [...] this encounter Miscellaneous Notes Telephone Encounter - Lexi Monahan, Night Clerk Auditor - 06/24/2017 4:20 PM PSTCalled pat ient to remind him to get his labs done prior to his appointment scheduled on 07/05/2017. Vo icemail not set up to leave a message. documented in this encounter Plan of Treatment Not on filedocumented as of this encounter Visit Diagnoses Not on filedocumented in this encounter"
--- OUTSIDE RECORDS SUMMARY | ~2019-11-16 | XMS | Encounter Summary ---
Demographics + + + | Address | [address] | | | [place] [address] | + + + | Home Phone | | + + + | Preferred Language | Unknown | + + + | Marital Status | | + + + | Rastafarian Affiliation | Unknown | + + + | Race | Unknown | + + + | Ethnic Group | Unknown | + + + Author + + + | Author | [facility] | | | and [place] | + + + | Organization | [facility] | | | [...] [place] | | | | | [address] | | + + + + + Care Team Providers + +------+ + | Care Rubber Mill Tender Name | Role | Phone | + +------+ + | Obie Arreola | PCP | | | MD | | | + +------+ + Encounter Details +--------+ + + + + | Date | Type | Department | Care Team | Description | +--------+ + + + + | 09/18/ | Abstract | [facility] | Sathya Cabrera | | | 2019 | | [address] | MD Srikanth [address] | | | | | [place], | [address] [place] | | | | | [place] [address] | [place] [address] | | | | | [phone] | | | | | | | [...] + + documented as of this encounter Plan of Treatment Not on filedocumented as of this encounter Procedures + +--------+ + + + | Procedure Name | Priori | Date/Time | Associated Diagnosis | Comments | | | ty | | | | + +--------+ + + + | EXTERNAL LAB: ALT | Routin | 05/04/2019 | | Results for this | | | e | | | procedure are in the | | | | | | results section. | + +--------+ + + + | EXTERNAL LAB: AST | Routin | 05/04/2019 | | Results for this | | | e | | | procedure are in the | | | | | | results section. | + +--------+ + + + | EXTERNAL LAB: | Routin | 05/04/2019 | | Results for this | | ALKALINE PHOSPHATASE | e | | | procedure are in the | | | | | | results section. | + +--------+ + + + | EXTERNAL LAB: | Routin | 05/04/2019 | | Results for this | | BILIRUBIN, TOTAL | e | | | procedure are in the | | | | | | results section. | + +--------+ + + + | EXTERNAL LAB: | Routin | 05/04/2019 | | Results for this | | ALBUMIN | e | | | procedure are in the | | | | | | results section. | + +--------+ + + + | EXTERNAL LAB: | Routin | 05/04/2019 | | Results for this | | PROTEIN, TOTAL | e | | | procedure are in the | | | | | | results section. | + +--------+ + + + | EXTERNAL LAB: | Routin | 05/04/2019 | | Results for this | | CALCIUM | e | | | procedure are in the | | | | | | results section. | + +--------+ + + + | EXTERNAL LAB: CARBON | Routin | 05/04/2019 | | Results for this | | DIOXIDE | e | | | procedure are in the | | | | | | results section. | + +--------+ + + + | EXTERNAL LAB: | Routin | 05/04/2019 | | Results for this | | CHLORIDE | e | | | procedure are in the | | | | | | results section. | + +--------+ + + + | EXTERNAL LAB: | Routin | 05/04/2019 | | Results for this | | POTASSIUM | e | | | procedure are in the | | | | | | results section. | + +--------+ + + + | EXTERNAL LAB: SODIUM | Routin | 05/04/2019 | | Results for this | | | e | | | procedure are in the | | | | | | results section. | + +--------+ + + + | EXTERNAL LAB: CBC | Routin | 05/04/2019 | | Results for this | | | e | | | procedure are in the | | | | | | results section. | + +--------+ + + + | EXTERNAL LAB: TSH | Routin | 05/04/2019 | | Results for this | | | e | | | procedure are in the | | | | | | results section. | + +--------+ + + + | EXTERNAL LAB: | Routin | 05/04/2019 | | Results for this | | TRIGLYCERIDES | e | | | procedure are in the | | | | | | results section. | + +--------+ + + + | EXTERNAL LAB: | Routin | 05/04/2019 | | Results for this | | CHOLESTEROL, HDL | e | | | procedure are in the | | | | | | results section. | + +--------+ + + + | EXTERNAL LAB: | Routin | 05/04/2019 | | Results for this | | CHOLESTEROL, TOTAL | e | | | procedure are in the | | | | | | results section. | + +--------+ + + + | EXTERNAL LAB: | Routin | 05/04/2019 | | Results for this | | CHOLESTEROL, LDL | e | | | procedure are in the | | DIRECT | | | | results section. | + +--------+ + + + | LIPID PANEL | Routin | 05/04/2019 | | Results for this | | | e | | | procedure are in the | | | | | | results section. | + +--------+ + + + | CBC WITH | Routin | 05/04/2019 | | Results for this | | DIFFERENTIAL | e | | | procedure are in the | | | | | | results section. | + +--------+ + + + | HEMOGLOBIN A1C | Routin | 05/04/2019 | | Results for this | | | e | | | procedure are in the | | | | | | results section. | + +--------+ + + + documented in this encounter Results Lipid Panel (05/04/2019) + +---------+ + + + | Component | Value | Ref Range | Performed | Pathologist | | | | | At | Signature | + +---------+ + + + | Chol/HDL | 3.3 (A) | 3.7 | | | | Ratio | | | | | + +---------+ + + + | Non HDL | 131 (A) | 130 | | | | Chol. | | | | | | (LDL+VLDL) | | | | | + +---------+ + + + + + | Specimen | + + | Blood | + + CBC with Differential (05/04/2019) + +-------+ + + + | Component | Value | Ref Range | Performed | Pathologist | | | | | At | Signature | + +-------+ + + + | MCH | 30.1 | 26.0 - 33.0 pg | | | + +-------+ + + + | MCHC | 31.9 | 31.0 - 37.0 | | | | | | g/dL | | | + +-------+ + + + | % Basophils | 1.0 | 1.0 % | | | + +-------+ + + + + + | Specimen | + + | Blood | + + Hemoglobin A1C (05/04/2019) + +---------+ + + + | Component | Value | Ref Range | Performed | Pathologist | | | | | At | Signature | + +---------+ + + + | Hemoglobin | 6.2 (A) | 5.6 % | EXTERNAL | | | A1c | | | LAB | | + +---------+ + + + + + | Specimen | + + | Blood | + + + +---------+ + + | Performing | Address | City/State/Zipcode | Phone Number | | Organization | | | | + +---------+ + + | EXTERNAL LAB | | | | + +---------+ + + External Lab: ALT (05/04/2019) + +-------+ + + + | Component | Value | Ref Range | Performed | Pathologist | | | | | At | Signature | + +-------+ + + + | ALT, | 20 | | EXTERNAL | | | External | | | LAB | | + +-------+ + + + + +---------+ + + | Performing | Address | City/State/Zipcode | Phone Number | | Organization | | | | + +---------+ + + | EXTERNAL LAB | | | | + +---------+ + + External Lab: AST (05/04/2019) + +-------+ + + + | Component | Value | Ref Range | Performed | Pathologist | | | | | At | Signature | + +-------+ + + + | AST, | 19 | | EXTERNAL | | | External | | | LAB | | + +-------+ + + + + +---------+ + + | Performing | Address | City/State/Zipcode | Phone Number | | Organization | | | | + +---------+ + + | EXTERNAL LAB | | | | + +---------+ + + External Lab: Alkaline Phosphatase (05/04/2019) + +-------+ + + + | Component | Value | Ref Range | Performed | Pathologist | | | | | At | Signature | + +-------+ + + + | ALP, | 80 | | EXTERNAL | | | External | | | LAB | | + +-------+ + + + + +---------+ + + | Performing | Address | City/State/Zipcode | Phone Number | | Organization | | | | + +---------+ + + | EXTERNAL LAB | | | | + +---------+ + + External Lab: Bilirubin, Total (05/04/2019) + +-------+ + + + | Component | Value | Ref Range | Performed | Pathologist | | | | | At | Signature | + +-------+ + + + | Bilirubin, | 0.7 | | EXTERNAL | | | Total, | | | LAB | | | External | | | | | + +-------+ + + + + +---------+ + + | Performing | Address | City/State/Zipcode | Phone Number | | Organization | | | | + +---------+ + + | EXTERNAL LAB | | | | + +---------+ + + External Lab: Albumin (05/04/2019) + +-------+ + + + | Component | Value | Ref Range | Performed | Pathologist | | | | | At | Signature | + +-------+ + + + | Albumin, | 4.2 | | EXTERNAL | | | External | | | LAB | | + +-------+ + + + + +---------+ + + | Performing | Address | City/State/Zipcode | Phone Number | | Organization | | | | + +---------+ + + | EXTERNAL LAB | | | | + +---------+ + + External Lab: Protein, Total (05/04/2019) + +-------+ + + + | Component | Value | Ref Range | Performed | Pathologist | | | | | At | Signature | + +-------+ + + + | Protein, | 6.6 | | EXTERNAL | | | Total, | | | LAB | | | External | | | | | + +-------+ + + + + +---------+ + + | Performing | Address | City/State/Zipcode | Phone Number | | Organization | | | | + +---------+ + + | EXTERNAL LAB | | | | + +---------+ + + External Lab: Calcium (05/04/2019) + +-------+ + + + | Component | Value | Ref Range | Performed | Pathologist | | | | | At | Signature | + +-------+ + + + | Calcium, | 9.5 | | EXTERNAL | | | External | | | LAB | | + +-------+ + + + + +---------+ + + | Performing | Address | City/State/Zipcode | Phone Number | | Organization | | | | + +---------+ + + | EXTERNAL LAB | | | | + +---------+ + + External Lab: Carbon Dioxide (05/04/2019) + +-------+ + + + | Component | Value | Ref Range | Performed | Pathologist | | | | | At | Signature | + +-------+ + + + | Carbon | 25 | | EXTERNAL | | | Dioxide, | | | LAB | | | External | | | | | + +-------+ + + + + +---------+ + + | Performing | Address | City/State/Zipcode | Phone Number | | Organization | | | | + +---------+ + + | EXTERNAL LAB | | | | + +---------+ + + External Lab: Chloride (05/04/2019) + +-------+ + + + | Component | Value | Ref Range | Performed | Pathologist | | | | | At | Signature | + +-------+ + + + | Chloride, | 107 | | EXTERNAL | | | External | | | LAB | | + +-------+ + + + + +---------+ + + | Performing | Address | City/State/Zipcode | Phone Number | | Organization | | | | + +---------+ + + | EXTERNAL LAB | | | | + +---------+ + + External Lab: Potassium (05/04/2019) + +-------+ + + + | Component | Value | Ref Range | Performed | Pathologist | | | | | At | Signature | + +-------+ + + + | Potassium, | 4.4 | | EXTERNAL | | | External | | | LAB | | + +-------+ + + + + +---------+ + + | Performing | Address | City/State/Zipcode | Phone Number | | Organization | | | | + +---------+ + + | EXTERNAL LAB | | | | + +---------+ + + External Lab: Sodium (05/04/2019) + +-------+ + + + | Component | Value | Ref Range | Performed | Pathologist | | | | | At | Signature | + +-------+ + + + | Sodium, | 143 | | EXTERNAL | | | External | | | LAB | | + +-------+ + + + + +---------+ + + | Performing | Address | City/State/Zipcode | Phone Number | | Organization | | | | + +---------+ + + | EXTERNAL LAB | | | | + +---------+ + + External Lab: CBC (05/04/2019) + +-------+ + + + | Component | Value | Ref Range | Performed | Pathologist | | | | | At | Signature | + +-------+ + + + | WBC, | 3.9 | | EXTERNAL | | | External | | | LAB | | + +-------+ + + + | HGB, | 12.3 | | EXTERNAL | | | External | | | LAB | | + +-------+ + + + | HCT, | 38.5 | | EXTERNAL | | | External | | | LAB | | + +-------+ + + + | PLT, | 169 | | EXTERNAL | | | External | | | LAB | | + +-------+ + + + | Neutrophils | 56.1 | | EXTERNAL | | | %, | | | LAB | | | External | | | | | + +-------+ + + + | Lymphocytes | 25.4 | | EXTERNAL | | | %, | | | LAB | | | External | | | | | + +-------+ + + + | Monocytes | 11.9 | | EXTERNAL | | | %, External | | | LAB | | + +-------+ + + + | Eosinophils | 5.6 | | EXTERNAL | | | %, | | | LAB | | | External | | | | | + +-------+ + + + | Neutrophils | 2.2 | | EXTERNAL | | | , Absolute, | | | LAB | | | External | | | | | + +-------+ + + + | Lymphocytes | 1.0 | | EXTERNAL | | | , Absolute, | | | LAB | | | External | | | | | + +-------+ + + + | Monocytes, | 0.5 | | EXTERNAL | | | Absolute, | | | LAB | | | External | | | | | + +-------+ + + + | Eosinophils | 0.2 | | EXTERNAL | | | , Absolute | | | LAB | | + +-------+ + + + | Basophils, | 0 | | EXTERNAL | | | Absolute | | | LAB | | + +-------+ + + + | RBC, | 4.09 | | EXTERNAL | | | External | | | LAB | | + +-------+ + + + | MCV, | 94 | | EXTERNAL | | | External | | | LAB | | + +-------+ + + + | RDW, | 13.2 | | EXTERNAL | | | External | | | LAB | | + +-------+ + + + + +---------+ + + | Performing | Address | City/State/Zipcode | Phone Number | | Organization | | | | + +---------+ + + | EXTERNAL LAB | | | | + +---------+ + + External Lab: TSH (05/04/2019) + +-------+ + + + | Component | Value | Ref Range | Performed | Pathologist | | | | | At | Signature | + +-------+ + + + | TSH, | 3.930 | | EXTERNAL | | | External | | | LAB | | + +-------+ + + + + + | Specimen | + + | Blood | + + + +---------+ + + | Performing | Address | City/State/Zipcode | Phone Number | | Organization | | | | + +---------+ + + | EXTERNAL LAB | | | | + +---------+ + + External Lab: Triglycerides (05/04/2019) + +-------+ + + + | Component | Value | Ref Range | Performed | Pathologist | | | | | At | Signature | + +-------+ + + + | Triglycerid | 121 | | EXTERNAL | | | es, | | | LAB | | | External | | | | | + +-------+ + + + + + | Specimen | + + | Blood | + + + +---------+ + + | Performing | Address | City/State/Zipcode | Phone Number | | Organization | | | | + +---------+ + + | EXTERNAL LAB | | | | + +---------+ + + External Lab: Cholesterol, HDL (05/04/2019) + +-------+ + + + | Component | Value | Ref Range | Performed | Pathologist | | | | | At | Signature | + +-------+ + + + | HDL | 58 | mg/dl | EXTERNAL | | | Cholesterol | | | LAB | | | , External | | | | | + +-------+ + + + + + | Specimen | + + | Blood | + + + +---------+ + + | Performing | Address | City/State/Zipcode | Phone Number | | Organization | | | | + +---------+ + + | EXTERNAL LAB | | | | + +---------+ + + External Lab: Cholesterol, Total (05/04/2019) + +-------+ + + + | Component | Value | Ref Range | Performed | Pathologist | | | | | At | Signature | + +-------+ + + + | Cholesterol | 189 | mg/dl | EXTERNAL | | | , Total, | | | LAB | | | External | | | | | + +-------+ + + + + + | Specimen | + + | Blood | + + + +---------+ + + | Performing | Address | City/State/Zipcode | Phone Number | | Organization | | | | + +---------+ + + | EXTERNAL LAB | | | | + +---------+ + + External Lab: Cholesterol, LDL Direct (05/04/2019) + +-------+ + + + | Component | Value | Ref Range | Performed | Pathologist | | | | | At | Signature | + +-------+ + + + | LDL | 120 | 129 | EXTERNAL | | | Cholesterol | | | LAB | | | , Direct, | | | | | | External | | | | | + +-------+ + + + + + | Specimen | + + | Blood | + + + +---------+ + + | Performing | Address | City/State/Zipcode | Phone Number | | Organization | | | | + +---------+ + + | EXTERNAL LAB | | | | + +---------+ + + documented in this encounter Visit Diagnoses Not on filedocumented in this encounter"
--- OUTSIDE RECORDS SUMMARY | ~2019-11-16 | XMS | Encounter Summary ---
Demographics + + + | Address | [address] | | | [place] [address] | + + + | Home Phone | | + + + | Preferred Language | Unknown | + + + | Marital Status | | + + + | Quaker Affiliation | Unknown | + + + | Race | Unknown | + + + | Ethnic Group | Unknown | + + + Author + + + | Author | [facility] | | | and [place] | + + + | Organization | [facility] | | | [...] [place] | | | | | [address] | | + + + + + Care Team Providers + +------+ + | Care Restorative Care Technician Name | Role | Phone | + +------+ + PCP | Unavailable | + +------+ + Encounter Details +--------+ + + + + | Date | Type | Department | Care Team | Description | +--------+ + + + + | 09/24/ | Hospital | [facility] | [place], | [place] [facility] | | 2005 - | Encounter | [facility] | Hari Phipps, | [facility] ([facility]) | | | | CARE FLOOR [address] | MD Ted Long | | | 09/27/ | | [address] | [address] [place], | | | [address] | | [place], [place] | [place] [address] | | | | | [address] | [phone] | | | | | [phone] | | | +--------+ + + + + Social History + +-------+ +--------+------+ | Tobacco Use | Types | Packs/Day | Years | Date | | | | | Used | | + +-------+ +--------+------+ | Never Assessed | | | | | + +-------+ +--------+------+ + + + | Sex Assigned at | Date Recorded | | | | + + + | Not on file | | + + + documented as of this encounter Plan of Treatment Not on filedocumented as of this encounter Visit Diagnoses + + | Diagnosis | + + | Acute myocardial infarction, unspecified site, episode of care unspecified | + + documented in this encounter"
--- OUTSIDE RECORDS SUMMARY | ~2019-11-16 | XMS | Encounter Summary ---
Demographics + + + | Address | [address] | | | [place] [address] | + + + | Home Phone | | + + + | Preferred Language | Unknown | + + + | Marital Status | | + + + | Congregational Affiliation | Unknown | + + + | Race | Unknown | + + + | Ethnic Group | Unknown | + + + Author + + + | Author | [facility] | | | and [place] | + + + | Organization | [facility] | | | [...] [place] | | | | | [address] | | + + + + + Care Team Providers + +------+ + | Care Mobile Developer Name | Role | Phone | + [...] Description | +--------+---------+ + + + | 08/08/ | Office | [facility] | Sathya Hansen | Coronary artery | | 2019 | Visit | CARDIOLOGY [address] | MD Srikanth [address] | disease, angina | | | | [place], | [address] [place] | presence | | | | [place] [address] | [place] [address] | unspecified, | | | | [phone] | [phone] | unspecified vessel | | | | | | or lesion type, | | | | | | unspecified whether | | | | | | moapa or | | | | | | transplanted heart; | | | | | | Paroxysmal atrial | | | | | | fibrillation (HCC); | | | | | | Hyperlipidemia, | | | | | | unspecified | | | | | | hyperlipidemia type | +--------+---------+ + + + Social History [...] + + + | Blood Pressure | 122/62 | 08/08/2018 9:09 AM | | | | | PDT | | + + + + + | Pulse | 64 | 08/08/2018 9:09 AM | | | | | PDT | | + + + + + | Temperature | - | - | | + + + + + | Respiratory Rate | 16 | 08/08/2018 9:09 AM | | | | | PDT | | + + + + + | Oxygen Saturation | - | - | | + + + + + | Inhaled Oxygen | - | - | | | Concentration | | | | + + + + + | Weight | 84 kg (185 lb 3 oz) | 08/08/2018 9:09 AM | | | | | PDT | | + + + + + | Height | 170.2 cm (5' 7") | 08/08/2018 9:09 AM | | | | | PDT | | + + + + + | Body Mass Index | 29 | 08/08/2018 9:09 AM | | | | | PDT | | + + + + + documented in this encounter Progress Notes Sathya Hansen MD - 08/08/2018 10:00 AM PDTFormatting of this note might be differe nt from the original. PATIENT NAME: Jemla Heath : 1930: AGE: 88 y.o. REFERRED BY: Sathya Hansen PRIMARY CARE: Obie Arreola MD CARDIOLOGY OFFICE VISIT Date of Service: 08/08/18 HISTORY OF PRESENT ILLNESS: Jemal Heath is a 88 y.o. male with a history of CAD, status post PCI of LAD in 2004, PA F, and abnormal ECG. He is being seen today for a follow-up visit. He presents with his wi carina Fernando. Since his last appointment, patient has been relatively active without any chest p ain or exertional symptoms. He has noticed some nasal discharge but denies any constitution al symptoms such as fevers or chills. He has lost about 15 pounds but he states that he has been reducing his food intake significantly and his weight loss is intentional. He denies any bowel symptoms. Pertinent historical clinical information: Patient was initially [...] Relation Status Mother Father Sister Sister Sister (Not Specified) Sister (Not Specified) Social History Social History Marital status: Spouse [...] solution prednisoLONE (PRED FORTE) 1% ophthalmic suspension warfarin (COUMADIN) 5 mg tablet Take 5 mg by mouth Daily. No current facility-administered medications for this visit. ALLERGIES No Known Allergies ROS I have reviewed the Review of Systems form dated today and scanned into the media tab. OBJECTIVE: PHYSICAL EXAM BP 122/62 | Pulse 64 | Resp 16 | Ht 1.702 m (5' 7") | Wt 84 kg (185 lb 3 oz) | BMI 29. 00 kg/m Physical Exam Constitutional: He appears well-developed and well-nourished. He does not appear ill. No di stress. Cardiovascular: Normal rate, regular rhythm, S1 normal, S2 normal, normal heart sounds and intact distal pulses. Pulses: Carotid pulses are 2+ on the right side, and 2+ on the left side. Radial pulses are 2+ on the right side, and 2+ on the left side. Pulmonary/Chest: Effort normal and breath sounds normal. Musculoskeletal: He exhibits no edema. Vitals reviewed. ECG: Reviewed by me [...] HCTEX, PLT, PLTEX I reviewed records from [facility] for hospitalization,including H&P, Discharge Summary and [...] although he cannot recall any details. His recent Holter monitor revealed frequent isolated ectopy w ithout sustained dysrhythmias or atrial fibrillation. He should continue with anticoagulati on therapy. In the past he briefly tried Pradaxa using medication samples but could not aff ord it. Ideally, he would still benefit from conversion of warfarin to a NOAC if feasible. I will prescribe him Xarelto 15 mg daily - if he has adequate insurance coverage, this shou ld take the place of warfarin therapy. 3. Dyspnea on exertion - this certainly may be attributed to the patient's advanced age, h owever given his abnormal ECG, he underwent an echocardiogram which was unremarkable. PLAN: 1. No further cardiovascular diagnostics. 2. Attempt to substitute warfarin with Xarelto if affordable/practical. Otherwise continu e current medications for now. 3. Maintain active lifestyle. 4. Follow-up visit within 6-12 months. 5. Fall prevention reemphasized. 6. If symptoms of nasal discharge persist, consider further discussion with primary physic alvin. Portions of this report were transcribed using voice recognition software. Every effort wa s made to ensure accuracy; however, inadvertent computerized cigar inspector errors may be pre sent. Electronically signed by: iRck Hansen MD PhD FACC 08/08/2018 documented in t his encounter Miscellaneous Notes Addendum Note - Kika Husain RN - 08/08/2018 10:00 AM PDT Addended by: KIKA HUSAIN on: 08/09/2018 08:22 Modules accepted: Orders documented in this encounter Plan of Treatment Not on filedocumented as of this encounter Procedures + +--------+ + + + | Procedure Name | Priori | Date/Time | Associated Diagnosis | Comments | | | ty | | | | + +--------+ + + + | ECG 12 LEAD | Routin | 08/08/2018 | Coronary artery | Results for this | | | e | 9:22 AM | disease, angina | procedure are in the | | | | PDT | presence | results section. | | | | | unspecified, | | | | | | unspecified vessel | | | | | | or lesion type, | | | | | | unspecified whether | | | | | | moapa or | | | | | | transplanted heart | | | | | | Paroxysmal atrial | | | | | | fibrillation (HCC) | | + +--------+ + + + documented in this encounter Results ECG 12 lead (08/08/2018 9:22 AM PDT) + + + + + + | Component | Value | Ref Range | Performed | Pathologist | | | | | At | Signature | + + + + + + | VENTRICULAR | 64 | BPM | [facility] | | | RATE EKG | | | | | + + + + + + | ATRIAL RATE | 64 | BPM | [facility] | | + + + + + + | P-R | 232 | ms | [facility] | | | INTERVAL | | | | | + + + + + + | QRS | 176 | ms | [facility] | | | DURATION | | | | | + + + + + + | Q-T | 462 | ms | [facility] | | | INTERVAL | | | | | + + + + + + | Q-T | 476 | ms | [facility] | | | INTERVAL | | | | | | (CORRECTED) | | | | | + + + + + + | P WAVE AXIS | 54 | degrees | [facility] | | + + + + + + | QRS AXIS | -14 | degrees | [facility] | | + + + + + + | T AXIS | 149 | degrees | [facility] | | + + + + + + | INTERPRETAT | Sinus rhythm with marked | | [facility] | | | ION TEXT | sinus arrhythmia with | | | | | | 1st degree AV blockLeft | | | | | | bundle branch | | | | | | blockAbnormal ECGWhen | | | | | | compared with ECG of | | | | | | 02-APR-2017 | | | | | | 10:31,premature atrial | | | | | | complexes are no longer | | | | | | presentConfirmed by | | | | | | SRIKANTH HANSEN MD | | | | | | ([id number]) on 08/08/2018 | | | | | | 4:10:37 PM | | | | + + [...] or lesion | | type, unspecified whether moapa or transplanted heart | + + | Paroxysmal atrial fibrillation (HCC) Atrial fibrillation | + + | Hyperlipidemia, unspecified hyperlipidemia type | + + documented in this encounter
--- OUTSIDE RECORDS SUMMARY | ~2019-11-16 | XMS | Encounter Summary ---
Demographics + + + | Address | [address] | | | [place] [address] | + + + | Home Phone | | + + + | Preferred Language | Unknown | + + + | Marital Status | | + + + | Judaism Affiliation | Unknown | + + + | Race | Unknown | + + + | Ethnic Group | Unknown | + + + Author + + + | Author | [facility] | | | and [place] | + + + | Organization | [facility] | | [...] [place] | | | | | [address] | | + + + + + Care Team Providers + +------+ + | Care Studio Data Analyst Name | Role | Phone | + [...] | Heart | Sathya | [address] | | | | | failure, | MD Srikanth | [place], | | | | | unspecified | [address] | [place] | | | | | heart | St [place] | [address] | | | | | failure | [place], [place] | Phone: | | | | | chronicity, | [address] | [phone] | | | | | unspecified | Phone: | Fax: | | | | | heart | [phone] | [phone] | | | | | failure type | Fax: | | | | | | Old [place] | [phone] | | | | | | (myocardial | | | | | | | infarction) | | | | | | | Procedures | | | | | | | ECHO | | | | | | | Complete DE | | | | | | | ECHO HEART | | | | | | | XTHORACIC,CO | | | | | | | MPLETE W | | | | | | | DOPPLER DE | | | | | | | ECHO HEART | | | | | | | XTHORACIC,CO | | | | | | | MPLETE, W/O | | | | | | | DOPPLER | | | +--------+--------+ + + + + Reason for Visit Auth/Cert +--------+--------+ + + + + | Status | Reason | Specialty | Diagnoses / | Referred By | Referred To | | | | | Procedures | Contact | Contact | +--------+--------+ + + + + | | | | | | | +--------+--------+ + + + + Encounter Details +--------+ + + + + | Date | Type | Department | Care Team | Description | +--------+ + + + + | 04/13/ | Hospital | [facility] | Sathya Hansen | Heart failure, | | 2016 | Encounter | MED CTR ECHO [address] | MD Srikanth [address] | unspecified heart | | | | [place] | [address] [place] | failure chronicity, | | | | [place] [address] | [place] [address] | unspecified heart | | | | [phone] | [phone] | failure type ([facility]); | | | | | | Old [place] (myocardial | | | | | Abida Esparza | infarction) | | | | | R, 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 | | | | | | tablet | | | | | | + + + +---------+--------+ + | cholecalciferol | Take 5,000 Units by | | 0 | | | | (VITAMIN D-3) 5000 | mouth Daily. | | | | | | units TABS | | | | | | + + + +---------+--------+ + | Citrulline 200 MG | Take 200 mg by mouth | | 0 | | | | PACK | Daily. | | | | | + + + +---------+--------+ + | Coenzyme Q10 | Take 1 capsule by | | 0 | | | | (COQ-10) 100 MG CAPS | mouth Daily. | | | | | + + + +---------+--------+ + | L-Arginine 500 MG | Take 1 tablet by | | 0 | | | | TABS | mouth Daily. | | | | | + + + +---------+--------+ + | Multiple Vitamin | Take 1 tablet by | | 0 | | | | TABS | mouth Daily. | | | | | + + + +---------+--------+ + | Nutritional | Take 1 capsule by | | 0 | | | | Supplements | mouth Daily. | | | | | | (GRAPESEED EXTRACT) | | | | | | | 500-50 MG CAPS | | | | | | + + + +---------+--------+ + | warfarin | Take 0.5 mg by mouth | | 0 | | | | (COUMADIN) 1 mg | Daily. | | | | 8 | | tablet | | | | | | + + + +---------+--------+ + | warfarin | Take 5 mg by mouth | | 0 | | | | (COUMADIN) 5 mg | Daily. | | | | 9 | | tablet | | | | | | + + + +---------+--------+ + documented as of this encounter Plan of Treatment Not on filedocumented as of this encounter Procedures + +--------+ + + + | Procedure Name | Priori | Date/Time | Associated Diagnosis | Comments | | | ty | | | | + +--------+ + + + | ECHO COMPLETE | Routin | 04/13/2017 | Heart failure, | Results for this | | | e | 10:51 AM | unspecified heart | procedure are in the | | | | PST | failure chronicity, | results section. 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 Procedure | | | Type of Study [...] | | | EF | | | Ozhfoqvkr16% Left Ventricle Diastolic Dimension: 4.88 cm | [...] Volume: 55.6 ml | | | EF Wudnmbvdy67% | | | | | | Left [...] | Procedure Note | + + | Bautista Lester Results In - 04/15/2017 8:12 PM PST Transthoracic Echocardiography Report | | (TTE) Demographics Patient Name FAITH Room Number ISIDORO | | Patient Number [id number] Date of Study 04/13/2017 Visit Number | | [id number] Referring Physician TYRONE GUO | | Number Date of 1930 [employer] JAMES PASCUAL [facility] Age | | 86 year(s) Interpreting TYRONE GUO | | Ecd SRIKANTH HANSEN MD Gender Male Nurse | [...] LA Volume: 55.6 ml | | EF Lmojgtmyt91% Left Ventricle Diastolic Dimension: 4.88 | | [...] LA Volume: 55.6 ml | | EF Ppwggnyfj54% | | | | Left Ventricle | [...] + | Diagnosis | + + | Heart failure, unspecified heart failure chronicity, unspecified heart failure type | + + | Old [place] (myocardial infarction) Old myocardial infarction | + + documented in this encounter"
--- OUTSIDE RECORDS SUMMARY | ~2019-11-16 | XMS | Encounter Summary ---
Demographics + + + | Address | [address] | | | [place] [address] | + + + | Home Phone | | + + + | Preferred Language | Unknown | + + + | Marital Status | | + + + | Sabianism Affiliation | Unknown | + + + | Race | Unknown | + + + | Ethnic Group | Unknown | + + + Author + + + | Author | [facility] | | | and [place] | + + + | Organization | [facility] | | [...] [place] | | | | | [address] | | + + + + + Care Team Providers + +------+ + | Care Cracker Dough Mixer Name | Role | Phone | + +------+ + | Obie Arreola | PCP | | | MD | | | + +------+ + Reason for Visit Auth/Cert +--------+--------+ + [...] + + | 04/13/ | Hospital | [facility] | Sathya Cabrera | Heart failure, | | 2016 | Encounter | MED CTR NUCLEAR | MD Srikanth [address] | unspecified heart | | | | MEDICINE [address] | [address] [place] | failure chronicity, | | | | [address] [place], | [place] [address] | unspecified heart | | | | [place] [address] | [phone] | failure type (HCC); | | | | [phone] | | PVC (premature | | | | | | ventricular | | | | | | contraction) | +--------+ + + + + Social [...] +---------+--------+ + documented as of this encounter Procedure Sathya Modi MD - 04/22/2017 4:16 PM PSTAssociated Order(s): HOLTER MONITOR - 24 HOUR PATIENT NAME: Jemal Heath : 1930: AGE: 86 y.o. PRIMARY CARE: Obie Arreola MD READING SOCIAL MEDIA PROJECT MANAGER: Rick Cabrera MD, PhD, [facility] 24-HOUR HOLTER MONITOR REPORT DATE: 04/13/2017 FINDINGS: 1. The predominant rhythm is normal sinus with the heart rate ranging between 46 and 85 b eats per minute. The average heart rate was 61 beats per minute during the 24:23 hour sarah rding. 2. 803 ventricular beats including one four beat ventricular run at a rate of 90 BPM, and 2 couplets. 3. 20,726 supraventricular beats including 23 couplets and four SVE runs. The longest r un was 6 beats at a maximum rate of 104 bpm (19:21-1). 4. 129 runs of bradycardia with the longest run 18 beats (11:22-1) and a minimum rate of 39 beats per minute (09:38-2). 5. No tachycardia or pauses. 6. Patient did not report any symptoms. IMPRESSION: 1. 24-hour Holter monitor notable for underlying sinus rhythm with mean heart rate 61. 2. Occasional isolated PVCs without significant sustained runs. 3. Very frequent PACs without significant sustained runs, comprising 23% of all beats. 4. Mild predominantly nocturnal bradycardia without pauses. 5. The symptoms reported. Signed by: Rick Cabrera MD PhD [facility] 04/22/2017, 16:16 documented in t his encounter Plan of Treatment Not on filedocumented as of this encounter Procedures + +--------+ + + + | Procedure Name | Priori | Date/Time | Associated Diagnosis | Comments | | | ty | | | | + +--------+ + + + | HOLTER MONITOR - 24 | Routin | 04/22/2017 | Heart failure, | Results for this | | HOUR | e | 4:16 PM | unspecified heart | procedure are in the | | | | PST | failure chronicity, | results section. | | | | | unspecified heart | | | | | | failure type (HCC) | | | | | | PVC (premature | | | | | | ventricular | | | | | | contraction) | | + +--------+ + + + documented in this encounter Results Holter monitor - 24 hour (04/22/2017 4:16 PM PST) + + + | Narrative | Performed At | + + + | Sathya Cabrera MD 04/22/2017 16:17 PATIENT | [facility] | | NAME: Jemal Heath : 1930: AGE: 86 y.o. | | | PRIMARY CARE: Obie Do | | | MD Maxwell READING SOCIAL MEDIA PROJECT MANAGER: Rick Cabrera MD, PhD, FACC | | | 24-HOUR HOLTER MONITOR REPORT [...] | | | reported. Signed by: Rick Cabrera MD PhD FACC | | | 04/22/2017, 16:16 | | [...] heart failure type | + + | PVC (premature ventricular contraction) Other premature beats | + + documented in this encounter"
--- OUTSIDE RECORDS SUMMARY | ~2019-11-16 | XMS | Encounter Summary ---
Demographics + + + | Address | [address] | | | [place] [address] | + + + | Home Phone | | + + + | Preferred Language | Unknown | + + + | Marital Status | | + + + | Jainism Affiliation | Unknown | + + + | Race | Unknown | + + + | Ethnic Group | Unknown | + + + Author + + + | Author | [facility] | | | and [place] | + + + | Organization | [facility] | | | [...] [place] | | | | | [address] | | + + + + + Care Team Providers + +------+ + | Care Plugger Man Name | Role | Phone | + +------+ + PCP | Unavailable | + +------+ + Encounter Details +--------+ + + + + | Date | Type | Department | Care Team | Description | +--------+ + + + + | 03/25/ | Abstract | [facility] [place] | Sathya Cabrera | | | 2017 | | CARDIOLOGY [address] | MD Srikanth [address] | | | | | [place], | [address] [place] | | | | | [place] [address] | [place] [address] | | | | | [phone] | [phone] | | | | | | | [...] + | EXTERNAL LAB: | Routin | 01/27/2017 | | Results for this | | KARIME INR | e | | | procedure are in the | | | | | | results section. | + +--------+ + + + | EXTERNAL LAB: | Routin | 10/20/2016 | | Results for this | | PROTIME INR | e | | | procedure are in the | | | | | | results section. | + +--------+ + + + | EXTERNAL LAB: IRON | Routin | 09/08/2015 | | Results for this | | SATURATION | e | | | procedure are in the | | | | | | results section. | + +--------+ + + + | EXTERNAL LAB: IRON | Routin | 09/08/2015 | | Results for this | | BINDING CAPACITY | e | | | procedure are in the | | | | | | results section. | + +--------+ + + + | EXTERNAL LAB: | Routin | 09/08/2015 | | Results for this | | FERRITIN | e | | | procedure are in the | | | | | | results section. | + +--------+ + + + | EXTERNAL LAB: | Routin | 09/08/2015 | | Results for this | | PROTIME INR | e | | | procedure are in the | | | | | | results section. | + +--------+ + + + | HEMOGLOBIN A1C | Routin | 09/08/2015 | | Results for this | | | e | | | procedure are in the | | | | | | results section. | + +--------+ + + + documented in this encounter Results External Lab: [facility] (01/27/2017) + +-------+ + + + | Component | Value | Ref Range | Performed | Pathologist | | | | | At | Signature | + +-------+ + + + | INR, | 2.3 | | | | | External | | | | | + +-------+ + + + | PT, | 24.1 | | | | | External | | | | | + +-------+ + + + + + | Specimen | + + | Blood | + + External Lab: [facility] (10/20/2016) + +-------+ + + + | Component | Value | Ref Range | Performed | Pathologist | | | | | At | Signature | + +-------+ + + + | INR, | 2.5 | | | | | External | | | | | + +-------+ + + + | PT, | 26.8 | | | | | External | | | | | + +-------+ + + + + + | Specimen | + + | Blood | + + Hemoglobin A1C (09/08/2015) + +-------+ + + + | Component | Value | Ref Range | Performed | Pathologist | | | | | At | Signature | + +-------+ + + + | Hemoglobin | 5.8 | % | | | | A1c, | | | | | | external | | | | | + +-------+ + + + + + | Specimen | + + | Blood | + + External Lab: Iron Saturation (09/08/2015) + +-------+ + + + | Component | Value | Ref Range | Performed | Pathologist | | | | | At | Signature | + +-------+ + + + | Iron | 37 | | | | | Saturation, | | | | | | External | | | | | + +-------+ + + + External Lab: Iron Binding Capacity (09/08/2015) + +-------+ + + + | Component | Value | Ref Range | Performed | Pathologist | | | | | At | Signature | + +-------+ + + + | Iron | 291 | | | | | Binding | | | | | | Capacity, | | | | | | External | | | | | + +-------+ + + + External Lab: Ferritin (09/08/2015) + +-------+ + + + | Component | Value | Ref Range | Performed | Pathologist | | | | | At | Signature | + +-------+ + + + | Ferritin, | 107 | | | | | External | | | | | + +-------+ + + + External Lab: [facility] MORAN (09/08/2015) + +-------+ + + + | Component | Value | Ref Range | Performed | Pathologist | | | | | At | Signature | + +-------+ + + + | INR, | 1.1 | | | | | External | | | | | + +-------+ + + + | PT, | 11.3 | | | | | External | | | | | + +-------+ + + + + + | Specimen | + + | Blood | + + documented in this encounter Visit Diagnoses Not on filedocumented in this encounter"
--- OUTSIDE RECORDS SUMMARY | ~2019-11-16 | XMS | Encounter Summary ---
Demographics + + + | Address | [address] | | | [place] [address] | + + + | Home Phone | | + + + | Preferred Language | Unknown | + + + | Marital Status | | + + + | Presybeterian Affiliation | Unknown | + + + | Race | Unknown | + + + | Ethnic Group | Unknown | + + + Author + + + | Author | [facility] | | | and [place] | + + + | Organization | [facility] | | | [...] [place] | | | | | [address] | | + + + + + Care Team Providers + +------+ + | Care Tile Picker Name | Role | Phone | + +------+ + PCP | Unavailable | + +------+ + Encounter Details +--------+ + + + + | Date | Type | Department | Care Team | Description | +--------+ + + + + | 03/24/ | Abstract | [facility] [place] | Sathya Cabrera | Hyperlipidemia, | | 2017 | | CARDIOLOGY [address] | MD Srikanth [address] | unspecified | | | | [place], | [address] [place] | hyperlipidemia type; | | | | [place] [address] | [place] [address] | Obesity, | | | | [phone] | [phone] | unspecified | | | | | | classification, | | | | | | unspecified obesity | | | | | | type, unspecified | | | | | | whether serious | | | | | | comorbidity present; | | | | | | Paroxysmal atrial | | | | | | fibrillation (HCC) | +--------+ + + + + Social [...] + + + | Blood Pressure | - | - | | + + + + + | Pulse | - | - | | + + + + + | Temperature | - | - | | + + + + + | Respiratory Rate | - | - | | + + + + + | Oxygen Saturation | - | - | | + + + + + | Inhaled Oxygen | - | - | | | Concentration | | | | + + + + + | Weight | 90 kg (198 lb 8 oz) | 03/24/2017 4:48 PM | | | | | PST | | + + + + + | Height | 170.2 cm (5' 7") | 03/24/2017 4:48 PM | | | | | PST | | + + + + + | Body Mass Index | 31.09 | 03/24/2017 4:48 PM | | | | | PST | | + + + + + documented in this encounter Plan of Treatment Not on filedocumented as of this encounter Visit Diagnoses + + | Diagnosis | + + | Hyperlipidemia, unspecified hyperlipidemia type | + + | Obesity, unspecified classification, unspecified obesity type, unspecified whether | | serious comorbidity present | + + | Paroxysmal atrial fibrillation (HCC) Atrial fibrillation | + + documented in this encounter
--- OUTSIDE RECORDS SUMMARY | ~2019-11-16 | XMS | Clinical Summary ---
Demographics + + + | Address | [address] | | | [place] [address] | + + + | Home Phone | | + + + | Preferred Language | Unknown | + + + | Marital Status | | + + + | Jewish Affiliation | Unknown | + + + | Race | Unknown | + + + | Ethnic Group | Unknown | + + + Author + + + | Author | [facility] | | | and [place] | + + + | Organization | [facility] | | | [...] [place] | | | | | [id number] | | + + + + + Care Team Providers + +------+ + | Care Stem Sizer Name | Role | Phone | + +------+ + | Obie Arreola | PCP | | | MD | | | + +------+ + Allergies No Known Allergies Medications + + + +---------+------+------+-------+ | Medication | Sig | Dispensed | Refills | Star | End | Statu | | | | | | t | Date | s | | | | | | Date | | | + + + +---------+------+------+-------+ | atorvaSTATin | Take 20 mg by mouth | | 0 | | | Activ | | (LIPITOR) 20 mg | nightly. | | | | | e | | tablet | | | | | | | + + + +---------+------+------+-------+ | Multiple Vitamin | Take 1 tablet by | | 0 | | | Activ | | TABS | mouth Daily. | | | | | e | + + + +---------+------+------+-------+ | L-Arginine 500 MG | Take 1 tablet by | | 0 | | | Activ | | TABS | mouth Daily. | | | | | e | + + + +---------+------+------+-------+ | Citrulline 200 MG | Take 200 mg by mouth | | 0 | | | Activ | | PACK | Daily. | | | | | e | + + + +---------+------+------+-------+ | cholecalciferol | Take 5,000 Units by | | 0 | | | Activ | | (VITAMIN D-3) 5000 | mouth Daily. | | | | | e | | units TABS | | | | | | | + + + +---------+------+------+-------+ | Coenzyme Q10 | Take 1 capsule by | | 0 | | | Activ | | (COQ-10) 100 MG CAPS | mouth Daily. | | | | | e | + + + +---------+------+------+-------+ | Nutritional | Take 1 capsule by | | 0 | | | Activ | | Supplements | mouth Daily. | | | | | e | | (GRAPESEED EXTRACT) | | | | | | | | 500-50 MG CAPS | | | | | | | + + + +---------+------+------+-------+ | dorzolamide | | | 0 | 02/1 | | Activ | | HCl-timolol maleate | | | | 4/20 | | e | | (COSOPT) 2.23-0.68% | | | | 19 | | | | ophthalmic solution | | | | | | | + + + +---------+------+------+-------+ | ketorolac (ACULAR) | | | 0 | 02/2 | | Activ | | 0.5% ophthalmic | | | | 8/20 | | e | | solution | | | | 19 | | | + + + +---------+------+------+-------+ | ofloxacin | | | 0 | 02/2 | | Activ | | (OCUFLOX) 0.3% | | | | 8/20 | | e | | ophthalmic solution | | | | 19 | | | + + + +---------+------+------+-------+ | prednisoLONE (PRED | | | 0 | 02/2 | | Activ | | FORTE) 1% | | | | 8/20 | | e | | ophthalmic | | | | 19 | | | | suspension | | | | | | | + + + +---------+------+------+-------+ | rivaroxaban | Take 1 tablet by | 90 | 3 | 03/ | | Activ | | (XARELTO) 15 mg | mouth Daily (with | tablet | | 11/03 | | e | | tablet | dinner). | | | 19 | | | + + + +---------+------+------+-------+ Active Problems + + + | Problem | Noted Date | + + + | Foot fracture, left | | + + + | Broken arms | | + + + | CAD (coronary artery disease) | | + + + | GERD (gastroesophageal reflux disease) | | + + + | Hyperlipidemia | | + + + | Obesity | | + + + | Paroxysmal atrial fibrillation | | + + + Encounters +--------+ + + + + | Date | Type | Specialty | Care Team | Description | +--------+ + + + + | 09/27/ | Office | Cardiology | Sathya Cabrera | Coronary artery | | 2020 | Visit | | MD Srikanth | disease, angina | | | | | | presence | | | | | | unspecified, | | | | | | unspecified vessel | | | | | | or lesion type, | | | | | | unspecified whether | | | | | | tanacross or | | | | | | transplanted heart | | | | | | (Primary Dx); | | | | | | Paroxysmal atrial | | | | | | fibrillation (HCC) | +--------+ + + + + | 05// | Abstract | Cardiology | Sathya Cabrera | | | 2020 | | | MD Srikanth | | +--------+ + + + + from Last 3 Months Family History + + +------+ + | Medical History | Relation | Name | Comments | + + +------+ + | Cancer | Mother | | | + + +------+ + | Heart attack | Mother | | | + + +------+ + | Heart attack | Sister | | | + + +------+ + | Cancer | Sister | | | + + +------+ + | Cancer | Sister | | | + + +------+ + + +------+ + + | Relation | Name | Status | Comments | + +------+ + + | Father | | | | + +------+ + + | Mother | | | | + +------+ + + | Sister | | | | + +------+ + + | Sister | | | | + +------+ + + | Sister | | | | + +------+ + + | Sister | | | | + +------+ + + Social History + +-------+ +--------+ [...] on file | | + + + Last Filed Vital Signs + + + [...] | | + + + + + Plan of Treatment + + + + + | Health Maintenance | Due Date | Last | Comments | | | | Done | | + + + + + | Vaccine: | | | | | Dtap/Tdap/Td (1 - | 0 | | | | Tdap) | | | | + + + + + | Vaccine: Zoster (1 | | | | | of 2) | 1 | | | + + + + + | Vaccine: | | | | | Pneumococcal 65+ (1 | 6 | | | | of 1 - PPSV23) | | | | + + + + + | Adult Annual | | | | | Wellness Visit | 7 | | | + + + + + | Vaccine: Influenza | | 03/28/20 | | | (#1) | 0 | 19, | | | | | 03/22/20 | | | | | 18, | | | | | 03/08/20 | | | | | 17, | | | | | Addition | | | | | al | | | | | history | | | | | exists | | + + + + + Procedures + +--------+ + + + | [...] whether | | | | | | tanacross or | | | | | | transplanted heart | | | | | | Paroxysmal atrial | | | | | | fibrillation (HCC) | | + +--------+ + + + from Last 3 Months Results ECG 12 lead (09/28/2019 11:47 AM [...] KARL | | | | | | ([id number]) on 09/29/2019 | | | | | [...] | | | + +---------+ + + from Last 3 Months Insurance + +--------+ +--------+ +---------+--------+ | Payer | Benefi | Subscriber | Effect | Phone | Address | Type | | | t Plan | ID | [id number] | | | | | | / | | Dates | | | | | | Group | | | | | | + +--------+ +--------+ +---------+--------+ | [employer] | [employer] | [id number] | 04/01/ | | | Indemn | | | NS | | 2018-P | | | ity | | | ADMIN | | resent | | | | | | [place] | | | | | | | | [place] | | | | | | + +--------+ +--------+ +---------+--------+ | [employer] | [place] | [id number] | 08/22/19 | | | Indemn | | | COMMUN | | 20-Pre | | | ity | | | ITY | | sent | | | | | | CARE | | | | | | + +--------+ +--------+ +---------+--------+ | MEDICARE | MEDICA | [id number] | | [phone] | | Medica | | | RE | | 019-Pr | 5 | | re | | | PART A | | esent | | | | | | AND B | | | | | | + +--------+ +--------+ +---------+--------+ | CIGNA | CIGNA | [id number] | | [phone] | | Indemn | | | MDCR | | 019-Pr | 1 | | ity | | | SUPPLE | | esent | | | | | | MENT | | | | | | | | SOLUTI | | | | | | | | ONS | | | | | | + +--------+ +--------+ +---------+--------+ | [employer] SENIOR | AMERIC | [id number] | 07/16/19 | [phone] | | Indemn | | SUPPLEMENTAL INS | AN | | 17-Pre | 7 | | ity | | | CONTIN | | sent | | | | | | ENTAL | | | | | | | | INS CO | | | | | | | | MDCR | | | | | | | | SUPPL | | | | | | + +--------+ +--------+ +---------+--------+ + +--------+ +--------+ + + | Guarantor Name | Accoun | Relation to | Date | Phone | Billing Address | | | t Type | Patient | of | | | | | | | | | | + +--------+ +--------+ + + | Jemal Heath | Person | Self [birth year] | [address] | | | al/Fam | | 1931 | [phone] | [address] [place] [address], | | | [place] | | | [address] ([place]) | [place] [address] | + +--------+ +--------+ + + Advance Directives + + + + + | Type | Date Recorded | Patient | Explanation | | | | Engineer Sergeant | | + + + + + | Power of | | | | | Cloud Administrator | | | | + + + + + | Advance | | | | | Directive | | | | + + + + +
[~2019-11-16 10:29] MED LIST: ELIQUIS5 MG PO
--- OUTSIDE RECORDS SUMMARY | 2019-11-16 10:52 | XMS ---
PreManage Notification: ISIDORO CUEVAS Security Pulp Beater Events No recent Security Events currently on file CRITERIA MET - [facility] - Has Care Guidelines CARE PROVIDERS Name Unknown Professional Bass Fisher: Clinical 11/16/2019-Current PHONE: [phone] Dariana has no Care Guidelines for this patient. Care History Medical/Surgical 11/16/2019 [facility] \T\middot;\T\nbsp; PATIENT IS A -RECEIVES [place] THROUGH [place] IN [place]. \T\middot;\T\nbsp; Location: [address], [place] [address]- E.D. VISIT COUNT (12 MO.) 1 [facility] 2 [facility] TOTAL 3 NOTE: Visits indicate total known visits. ED/UCC VISIT TRACKING (12 MO.) 11/16/2019 10:29 [facility] [place] TYPE: Emergency COMPLAINT: - FALL, HEAD LACERATION 06/08/2019 13:31 [facility] [place] TYPE: Emergency COMPLAINT: - RIGHT ARM NUMBNESS, POSS STROKE DIAGNOSES: - Paresthesia of skin - Anesthesia of skin - Other fdc (current) drug therapy 12/16/2018 12:26 [facility] [place] TYPE: Emergency DIAGNOSES: - BLACK AND LOOSE STOOL - Diarrhea, unspecified INPATIENT VISIT TRACKING (12 MO.) No inpatient visits to display in this time frame [email or web address]
--- NOTE | 2019-11-16 13:36 | EKG ---
[facility] [address] [place], [place] [address] Signed Sinus rhythm with 1st degree AV block with frequent premature ventricular complexes and premature atrial complexes Left axis deviation Left bundle branch block Abnormal ECG No previous ECGs available Confirmed by NITZA FERNANDEZ DO ([id number]) on 11/16/2019 1:36:15 PM Electronically Signed By: NITZA FERNANDEZ DO 11/16/19 1336 PATIENT NAME: FAITHISIDORO Electrocardiogram DATE OF : [birth year] PHYSICIAN: NITZA FERNANDEZ DO REPORT #: [id number] REPORT IS CONFIDENTIAL AND NOT TO BE RELEASED WITHOUT AUTHORIZATION
== END 2019-11-16 13:01 | disposition home or self-care (01) ==
LOC: ED 10:29
DX: S01.21XA Laceration without foreign body of nose, initial encounter (principal); S00.81XA Abrasion of other part of head, initial encounter; Z23 Encounter for immunization; Z79.01 Long term (current) use of anticoagulants; W19.XXXA Unspecified fall, initial encounter
CPT/HCPCS: 70450; 72125; 73130; 80048; 81001; 84484; 85025; 90471; 90715; 93005; 93010; 99284-25